=== PATIENT | female | born 1955 | race American Indian/Alaskan Native ===

== ENCOUNTER 2019-12-07 10:17 | Inpatient (IN) | payer MEDICARE ==
[2019-12-07] MEDS ORDERED: ONDANSETRON 4 MG/2 ML INJ ONE (17:20)
[2019-12-07] MEDS ORDERED: fentaNYL 100 MCG/2 ML INJ ONE (17:20)
[2019-12-07] MEDS ORDERED: HYDROmorphone 1 MG/1 ML INJ ONE (18:32)
[2019-12-07] MEDS ORDERED: ASPIRIN 325 MG TAB ONE (18:32)
--- NOTE | 2019-12-07 20:15 | History and Physical Report ---
History of Present Illness Chief complaint: My head was hurting and I could not talk History of present illness: 64 YO Female with HTN, DM, COPD, ELIAS, CHF, CVA, Pseudotumor Cerebrii S/P Serial Lumbar Puncture presents to ED for evaluation. Patient states that she was in her usual state of health at bedtime around 2200 hrs. Patient states that she awoke from sleep and felt as though she could not talk and if the right side of her face was weak. Patient also acknowledges a headache. EMS was notified and upon arrival the patient was found to be in distress and subsequently transported to [facility] for further care and evaluation. Patient seen and evaluated in the emergency department. Lab and imaging studies reviewed. Patient found to have symptoms consistent with pseudotumor cerebri syndrome. Patient placed in observation status and admitted to medical floor. Fluoroscopic guided lumbar puncture ordered at time of admission and is pending. Teleneurology consulted in ED. Patient denies fever, chills, chest pain, palpitations, syncope, trauma, falls, loss of bowel or bladder continence, saddle anesthesia, productive cough, recent ill contacts, or known exposure to COVID-19. No prior admission for review. No medication at the time of admission for reconciliation. Past History Past Medical History: COPD, heart failure, hypertension, stroke, other (See HPI) Past Surgical History: No surgical history, Other (Reviewed) Social history: . denies: smoking, alcohol abuse Family history: hypertension Medications and Allergies Allergies Allergy/AdvReac Type Severity Reaction Status Date / Time No Known Allergies Allergy Verified 12/07/19 20:46 Home Medications Medication Instructions Recorded Confirmed Last Taken Type Unobtainable 12/07/19 12/07/19 Unknown History Review of Systems Constitutional: no weight loss, no weight gain, no chills, no sweats Ears, nose, mouth and throat: no ear pain, no ear discharge, no tinnitis, no decreased hearing, no nasal congestion Breasts: no change in shape, no swelling Cardiovascular: no chest pain, no orthopnea, no rapid/irregular heart beat, no syncope, no lightheadedness Respiratory: no cough, no excessive sputum, no shortness of breath Gastrointestinal: no abdominal pain, no vomiting, no constipation, no hematemesis Genitourinary Female: no pelvic pain, no flank pain, no dysuria Rectal: no pain, no incontinence, no bleeding Musculoskeletal: no neck stiffness, no low back pain, no leg numbness/tingling Integumentary: no rash, no wounds, no jaundice Neurological: weakness, headaches, no tingling, no seizures, no syncope, no ataxia Psychiatric: no anxiety, no sleep disturbances, no hypersomnia Endocrine: no heat intolerance, no polyphagia, no polyuria, no flushing Hematologic/Lymphatic: no easy bleeding Exam - Constitutional Vitals: Temp Pulse Resp BP Pulse Ox 68 16 107/75 100 12/07/19 20:03 12/07/19 20:03 12/07/19 20:03 12/07/19 20:03 General appearance: Present: mild distress, obese - EENT Eyes: Present: PERRL ENT: hearing intact, clear oral mucosa - Neck Neck: Present: supple, normal ROM - Respiratory Respiratory effort: normal Respiratory: bilateral: CTA - Cardiovascular Heart Sounds: Present: S1 & S2. Absent: rub, click - Extremities Extremities: pulses symmetrical, No edema Peripheral Pulses: within normal limits - Abdominal General gastrointestinal: Present: soft, non-tender, non-distended, normal bowel sounds Female genitourinary: Present: normal - Integumentary Integumentary: Present: clear, warm, dry - Musculoskeletal Musculoskeletal: gait normal, strength equal bilaterally - Psychiatric Psychiatric: appropriate mood/affect, intact judgment & insight - Neurologic Neurologic: CNII-XII intact, moves all extremities Assessment and Plan - Patient Problems (1) Pseudotumor cerebri syndrome Current Visit: Yes Status: Acute Plan to address problem: Fluoroscopic guided lumbar puncture ordered and is pending at time of admission, supportive care, continue prehospital medication, CT scan of the brain, neuro check, seizure precautions. (2) Hypertension Current Visit: Yes Status: Acute Qualifiers: Hypertension type: essential hypertension Qualified Code(s): I10 - Essential (primary) hypertension Plan to address problem: Monitor blood pressure every shift, continue medical management. (3) Diabetes Current Visit: Yes Status: Acute Plan to address problem: Sliding-scale insulin therapy, Accu-Chek, hypoglycemia protocol, consistent carbohydrate diet. (4) Obesity hypoventilation syndrome Current Visit: Yes Status: Acute Plan to address problem: Supplemental oxygen, nebulized therapy, pulse oximetry, noninvasive positive pressure ventilation as clinically indicated, outpatient pulmonary follow-up for sleep study. (5) DVT prophylaxis Current Visit: Yes Status: Acute Plan to address problem: SCD to bilateral lower extremities while in bed, patient is ambulatory.
[2019-12-07] MEDS ORDERED: ONDANSETRON 4 MG/2 ML INJ IV PRN (20:17)
[2019-12-07] MEDS ORDERED: METOCLOPRAMIDE 10 MG TAB PO PRN (20:17)
[2019-12-07] MEDS ORDERED: PROMETHAZINE 25 MG RECT SUPP PR PRN (20:17)
--- NOTE | 2019-12-07 23:11 | Consultation ---
History of Present Illness Consult date: 12/07/19 Reason for Consult: severe OROURKE, left sided weakness History of present illness: late entry: patient evaluated this morning while EMR was down. Recommendations discussed with ED physician [facility] Tele[facility] Consult [facility] Date of Service: 12/07/2019 10:51:36 Impression: Rule Out Acute Ischemic Stroke, rule out complicated migraine and/or IIH Rule out SAH/aneurysm Hx IIH, check LP in ED with opening pressure, basic labs csf glucose protein cell count culture HSV Comments/Sign-Out: 64 yo F with hx TIAs, IIH who presents with left sided weakness, right eyelid ptosis, and variable sensory loss in setting of severe headache. This may be complicated migraine however stroke/SAH 2.2 aneurysm need to be ruled out. CT head shows no bleed per radiology. CTA head and neck recommended. ED MD to call back with result as system is down LP to confirm opening pressure and eval for IIH given history; aseptic meningitis less likely Mechanism of Stroke: Not Clear Metrics: Last Known Well: 12/06/2019 21:00:00 [employer] Notification Time: 12/07/2019 10:51:06 Arrival Time: 12/07/2019 10:30:00 Stamp Time: 12/07/2019 10:51:36 Time First Login Attempt: 12/07/2019 10:53:33 Video Start Time: 12/07/2019 10:55:32 Symptoms: severe OROURKE, left sided limb weakness. right eyelid ptosis NIHSS Start Assessment Time: 12/07/2019 10:57:54 Patient is not a candidate for Alteplase/Activase. Patient was not deemed candidate for Alteplase/Activase thrombolytics because of Last Well Known Above 4.5 Hours. Video End Time: 12/07/2019 11:11:13 CT head showed no acute hemorrhage or acute core infarct. Lower Likelihood of Large Vessel Occlusion but Following Stat Studies are Recommended CTA Head and Neck recommended ED Physician notified of diagnostic impression and management plan on 12/07/2019 11:11:27 Our recommendations are outlined below. Recommendations: Activate Stroke Protocol Admission/Order Set Stroke/Telemetry Floor Neuro Checks Bedside Swallow Eval DVT Prophylaxis IV Fluids, Normal Saline Head of Bed 30 Degrees Euglycemia and Avoid Hyperthermia (PRN Acetaminophen) Antiplatelet Therapy Recommended MRI brain with and without contrast if no contraindication Routine Consultation with Inhouse Neurology for Follow up Care Sign Out: Discussed with Emergency Department Provider History of Present Illness: Patient is a 64 year old Female. Patient was brought by EMS for symptoms of severe ORORUKE, left sided limb weakness. right eyelid ptosis 64 yo F hx TIAs on aspirin, IIH, DM2, HTN, systolic/diastolic HF who woke up and could not move her mouth, could not speak or move her neck side to side with severe headache. Head still hurting like it will explode. Exam with poor effort and variable. She has no facial asymmetry. She can move her neck to the left slightly, but limited to 45 degress laterally on the right. Her head and arms are shaking when moving them. She also has left arm and leg weakness (leg can't lift it off the bed, but when lifted slowly drifts to bed). Also she has right eyelid ptosis no dysconjugate gaze or pupil asymmetry, left facial sensory loss including the forehead, but right arm and leg decreased sensation Last seen normal was beyond 4.5 hours of presentation. There is no history of hemorrhagic complications or intracranial hemorrhage. There is no history of Recent Anticoagulants. There is no history of recent major surgery. There is no history of recent stroke. Past Medical History: Hypertension There is NO history of Stroke Anticoagulant use: No Antiplatelet use: asa 81 Examination: BP(121/72), Pulse(63), Blood Glucose(131) 1A: Level of Consciousness - Alert; keenly responsive + 0 1B: Ask Month and Age - Both Questions Right + 0 1C: Blink Eyes & Squeeze Hands - Performs Both Tasks + 0 2: Test Horizontal Extraocular Movements - Normal + 0 3: Test Visual Martin - No Visual Loss + 0 4: Test Facial Palsy (Use Grimace if Obtunded) - Normal symmetry + 0 5A: Test Left Arm Motor Drift - Drift, hits bed + 2 5B: Test Right Arm Motor Drift - No Drift for 10 Seconds + 0 6A: Test Left Leg Motor Drift - No Effort Against [place] + 3 6B: Test Right Leg Motor Drift - No Drift for 5 Seconds + 0 7: Test Limb Ataxia (FNF/Heel-Finn) - No Ataxia + 0 8: Test Sensation - Mild-Moderate Loss: Less Sharp/More Dull + 1 9: Test Language/Aphasia - Normal; No aphasia + 0 10: Test Dysarthria - Mild-Moderate Dysarthria: Slurring but can be understood + 1 11: Test Extinction/Inattention - No abnormality + 0 NIHSS Score: 7 Patient/Family was informed the Neurology Consult would happen via TeleHealth consult by way of interactive audio and video telecommunications and consented to receiving care in this manner. Due to the immediate potential for life-threatening deterioration due to underlying acute neurologic illness, I spent 36 minutes providing critical care. This time includes time for face to face visit via telemedicine, review of medical records, imaging studies and discussion of findings with providers, the patient and/or family. Dr Richard Chen [facility] Case [id number] Past History Past Medical History: COPD, heart failure, hypertension, stroke, other (See HPI) Past Surgical History: No surgical history, Other (Reviewed) Social history: . denies: smoking, alcohol abuse Family history: hypertension Medications and Allergies Allergies Allergy/AdvReac Type Severity Reaction Status Date / Time acetazolamide Allergy Anaphylaxis Verified 12/07/19 22:54 [From Diamox Sequels] beclomethasone Allergy Anaphylaxis Verified 12/07/19 22:55 [From Vanceril] Home Medications Medication Instructions Recorded Confirmed Last Taken Type Unobtainable 12/07/19 12/07/19 Unknown History Active Meds: Active Medications Acetaminophen (Tylenol) 650 mg PO Q4H PRN PRN Reason: Pain, Mild (1-3) Aspirin (Aspirin) 325 mg PO QDAY MARLYS Atorvastatin Calcium (Lipitor) 40 mg PO QHS [facility] Last Admin: 12/07/19 22:52 Dose: 40 mg Documented by: Bisacodyl (Dulcolax) 10 mg KS QDAY PRN PRN Reason: Constipation Magnesium Hydroxide (Milk Of Magnesia) 30 ml PO Q4H PRN PRN Reason: Constipation Metoclopramide HCl (Reglan) 10 mg PO Q6H PRN PRN Reason: Nausea And Vomiting Ondansetron HCl (Zofran) 4 mg IV Q8H PRN PRN Reason: Nausea And Vomiting Promethazine HCl (Phenergan) 25 mg KS Q6H PRN PRN Reason: Nausea And Vomiting Sodium Chloride (Sodium Chloride Flush Syringe 10 Ml) 10 ml IV PRN PRN PRN Reason: LINE FLUSH Physical Examination - Vital Signs Vital Signs: Vital Signs Pulse Resp BP Pulse Ox 68 16 107/75 100 12/07/19 20:03 12/07/19 20:03 12/07/19 20:03 12/07/19 20:03
[2019-12-08] MEDS ORDERED: MORPHINE 2 MG/1 ML INJ IV ONE (01:03)
[2019-12-08 05:56] LABS: Chol/HDL Ratio 2.63 %
[2019-12-08] MEDS: ASPIRIN 325 MG TAB PO SCH (09:31)
--- NOTE | 2019-12-08 10:11 | Progress Note ---
Assessment and Plan Assessment and plan: 64 YO Female with HTN, DM, COPD, ELIAS, CHF, CVA, Pseudotumor Cerebrii S/P Serial Lumbar Puncture presents to ED for evaluation. Patient states that she was in her usual state of health at bedtime around 2200 hrs. Patient states that she awoke from sleep and felt as though she could not talk and if the right side of her face was weak. Patient also acknowledges a headache. EMS was notified and upon arrival the patient was found to be in distress and subsequently transported to [facility] for further care and evaluation. Patient seen and evaluated in the emergency department. Lab and imaging studies reviewed. Patient found to have symptoms consistent with pseudotumor cerebri syndrome. Patient placed in observation status and admitted to medical floor. Fluoroscopic guided lumbar puncture ordered at time of admission and is pending. Teleneurology consulted in ED. --h/o Pseudotumor cerebri syndrome/serial lumbar punctures Current Visit: Yes Status: Acute Plan to address problem: Fluoroscopic guided lumbar puncture ordered and is pending at time of admission, CT scan of the brain, neuro check, seizure precautions. Neurology consult --Hypertension; moderate control Current Visit: Yes Status: Acute Plan to address problem: Continue current antihypertensives, as needed meds --Diabetes Current Visit: Yes Status: Acute Plan to address problem: Accu-Chek sliding scale coverage, ADA diet --Obesity hypoventilation syndrome Current Visit: Yes Status: Acute Plan to address problem: Supplemental oxygen, nebulized therapy, noninvasive positive pressure ventilation as clinically indicated, outpatient pulmonary follow-up for sleep study. -- DVT prophylaxis Current Visit: Yes Status: Acute Plan to address problem: SCD to bilateral lower extremities while in bed, patient is ambulatory. Closely monitor patient and adjust management as needed We will try to get records from her PMD if needed Plan of care reviewed with the patient and her nurse History Interval history: I have seen and examined the patient at the bedside this morning Patient's chart and medications reviewed Patient has history of pseudotumor cerebri patient undergoes serial LPs procedures Complains of some headache Alert awake oriented, vital signs reviewed stable Hospitalist Physical - Constitutional Vitals: Temp Pulse Resp BP Pulse Ox 97.3 F L 65 16 104/77 95 12/08/19 03:44 12/08/19 08:40 12/08/19 03:44 12/08/19 03:44 12/08/19 03:44 General appearance: Present: mild distress, obese (Morbidly obese) - EENT Eyes: Present: PERRL, EOM intact - Neck Neck: Present: supple, normal ROM - Respiratory Respiratory effort: normal Respiratory: bilateral: diminished, negative: rales, rhonchi, wheezing - Cardiovascular Rhythm: regular Heart Sounds: Present: S1 & S2 - Extremities Extremities: no ischemia, No edema - Abdominal General gastrointestinal: soft, non-tender, non-distended, normal bowel sounds - Integumentary Integumentary: Present: clear, warm - Psychiatric Psychiatric: appropriate mood/affect, cooperative - Neurologic Neurologic: moves all extremities Results - Labs CBC & Chem 7: 12/08/19 10:38 Labs: Laboratory Last Values POC Glucose 149 mg/dL (70-105) H 12/08/19 08:51 Triglycerides 127 mg/dL (2-149) 12/08/19 04:38 Cholesterol 100 mg/dL (50-199) 12/08/19 04:38 LDL Cholesterol Direct 43 mg/dL (50-130) L 12/08/19 04:38 HDL Cholesterol 38 mg/dL (40-59) L 12/08/19 04:38 Cholesterol/HDL Ratio 2.63 % 12/08/19 04:38 Flores/IV: Voiding Method Toilet IV Catheter Type [Right INT / Saline Lock Antecubital] Active Medications - Current Medications Current Medications: Generic Name Dose Route Start Last Admin Trade Name Freq PRN Reason Stop Dose Admin Acetaminophen 650 mg 12/07/19 20:17 Tylenol PO Q4H PRN Pain, Mild (1-3) Aspirin 325 mg 12/08/19 10:00 12/08/19 09:31 Aspirin PO 325 mg QDAY MARLYS Administration Atorvastatin Calcium 40 mg 12/07/19 22:00 12/07/19 22:52 Lipitor PO 40 mg QHS MARLYS Administration Bisacodyl 10 mg 12/07/19 20:17 Dulcolax OR QDAY PRN Constipation Magnesium Hydroxide 30 ml 12/07/19 20:17 Milk Of Magnesia PO Q4H PRN Constipation Metoclopramide HCl 10 mg 12/07/19 20:17 Reglan PO Q6H PRN Nausea And Vomiting Ondansetron HCl 4 mg 12/07/19 20:17 Zofran IV Q8H PRN Nausea And Vomiting Promethazine HCl 25 mg 12/07/19 20:17 Phenergan OR Q6H PRN Nausea And Vomiting Sodium Chloride 10 ml 12/07/19 20:17 Sodium Chloride Flush Syringe 10 Ml IV PRN PRN LINE FLUSH
[2019-12-08 11:36] LABS: Hematocrit 40.8 % (30.3-42.9); Hemoglobin 13.1 gm/dl (10.1-14.3); Mean Corpuscular HGB Conc 32 % (30-34); Mean Corpuscular Volume 84 fl (79-97); Platelet Count 160 K/mm3 (140-440); Red Blood Count 4.83 M/mm3 (3.65-5.03)
[2019-12-08 12:30] LABS: INR 1.07 (0.87-1.13)
--- NOTE | 2019-12-08 12:57 | Consultation ---
History of Present Illness Consult date: 12/08/19 Reason for Consult: Pseudotumor Cerebri History of present illness: 64yo female with htn, dm, cva, iih, copd, judie, chf, who presents with acute on set of a headache w/ aphasia w/ right sided facial weakness with noted (per teleneurology note) right eye ptosis and variable sensory symptoms. Past History Past Medical History: COPD, heart failure, hypertension, stroke, other (See HPI) Past Surgical History: No surgical history, Other (Reviewed) Social history: . denies: smoking, alcohol abuse Family history: hypertension Medications and Allergies Allergies Allergy/AdvReac Type Severity Reaction Status Date / Time acetazolamide Allergy Anaphylaxis Verified 12/07/19 22:54 [From Diamox Sequels] beclomethasone Allergy Anaphylaxis Verified 12/07/19 22:55 [From Vanceril] Home Medications Medication Instructions Recorded Confirmed Last Taken Type No Known Home Medications [No 12/08/19 12/08/19 Unknown History Reported Home Medications] Active Meds: Active Medications Acetaminophen (Tylenol) 650 mg PO Q4H PRN PRN Reason: Pain, Mild (1-3) Aspirin (Aspirin) 325 mg PO QDAY [facility] Last Admin: 12/08/19 09:31 Dose: 325 mg Documented by: Atorvastatin Calcium (Lipitor) 40 mg PO QHS [facility] Last Admin: 12/07/19 22:52 Dose: 40 mg Documented by: Bisacodyl (Dulcolax) 10 mg ND QDAY PRN PRN Reason: Constipation Magnesium Hydroxide (Milk Of Magnesia) 30 ml PO Q4H PRN PRN Reason: Constipation Metoclopramide HCl (Reglan) 10 mg PO Q6H PRN PRN Reason: Nausea And Vomiting Ondansetron HCl (Zofran) 4 mg IV Q8H PRN PRN Reason: Nausea And Vomiting Promethazine HCl (Phenergan) 25 mg ND Q6H PRN PRN Reason: Nausea And Vomiting Sodium Chloride (Sodium Chloride Flush Syringe 10 Ml) 10 ml IV PRN PRN PRN Reason: LINE FLUSH Review of Systems All systems: negative (except as per HPI;) Physical Examination - Vital Signs Vital Signs: Vital Signs Pulse Resp BP Pulse Ox 68 16 107/75 100 12/07/19 20:03 12/07/19 20:03 12/07/19 20:03 12/07/19 20:03 - Additional Exam Additional Exam: Patient is at LP during rounds. Results - Laboratory Findings CBC and BMP: 12/08/19 10:38 Abnormal Lab Findings: Abnormal Labs 12/08/19 12/08/19 12/08/19 04:38 08:51 10:38 MCH 27 L RDW 16.0 H POC Glucose 149 H LDL Cholesterol Direct 43 L HDL Cholesterol 38 L Assessment and Plan Patient is at LP during rounds.
[2019-12-08] MEDS ORDERED: LIDOCAINE (1%) 10 MG/1 ML VIAL 20 ML MDV ONE (13:33)
--- NOTE | 2019-12-08 13:45 | Cat Scan Report ---
NONENHANCED CT SCAN OF THE HEAD: INDICATION / CLINICAL INFORMATION: 64 years Female; MAIN. Stroke TECHNIQUE: Routine CT head without contrast. All CT scans at this location are performed using CT dos e reduction for ALARA by means of automated exposure control. COMPARISON: CT scan of the head from 12/08/2019 FINDINGS: BRAIN / INTRACRANIAL CONTENTS: No acute hemorrhage, mass effect, midline shift, hydrocephalus, or acu te, large territorial infarct. No chronic infarct or focal atrophy. Normal brain volume and ventricul ar/sulcal size for age. No significant white matter abnormality. Cortical involution CRANIOCERVICAL JUNCTION: No significant abnormality. ORBITS: No significant abnormality of visualized orbits. SINUSES / MASTOIDS: No significant abnormality of the visualized paranasal sinuses or mastoid air enio ls. ADDITIONAL FINDINGS: Empty sella IMPRESSION: No acute focal parenchymal lesion in the brain No territorial infarction Periventricular and deep hemispheric white matter are normal. Signer Name: Hina Herrera MD Signed: 12/08/2019 1:40 PM Workstation Name: [id number]
--- NOTE | 2019-12-08 14:09 | Procedure Note ---
Date of procedure: 12/08/19 Pre-op diagnosis: pseudotumor cerebri Post-op diagnosis: same Procedure: flouro guided lumbar puncture Findings: elevated CSF pressure [id number] Anesthesia: local Surgeon: ALEX GASTON Estimated blood loss: none Pathology: list (4 CSF tubes) Specimen disposition: to lab Condition: stable Disposition: floor
--- NOTE | 2019-12-08 15:07 | Cat Scan Report ---
CTA HEAD WITH CONTRAST HISTORY: Stroke COMPARISON: None. TECHNIQUE: Routine non-contrast CT Head, CTA of the head and post-contrast CT Head are performed. 3-D /MIP reformats postprocessed. All CT scans at this location are performed using CT dose reduction for ALARA by means of automated exposure control CONTRAST: 100 ml of Omnipaque 350 FINDINGS: CTA Head: Intracranial vertebral arteries: No significant abnormality. Basilar artery: No significant abnormality. Posterior cerebral arteries: No significant abnormality. Intracranial internal carotid arteries: No significant abnormality. Anterior cerebral arteries: No significant abnormality. Middle cerebral arteries: No significant abnormality. Dural venous sinuses:Not optimally opacified. No significant abnormality. Additional findings: None. IMPRESSION: 1. No significant abnormality. Signer Name: Hina Herrera MD Signed: 12/07/2019 5:26 PM Workstation Name: [id number]
--- NOTE | 2019-12-08 15:07 | Cat Scan Report ---
CTA NECK WITH CONTRAST HISTORY: Stroke COMPARISON: None. TECHNIQUE: Routine CTA of the neck was performed. 3-D/MIP reformats were postprocessed. Percentage s tenosis is determined by direct quantitative measurements of diseased internal carotid artery diamete r compared with normal distal internal carotid artery reference segments or by criteria similar to NA SCET where applicable.All CT scans at this location are performed using CT dose reduction for ALARA b y means of automated exposure control CONTRAST: 100 ml of Omnipaque 350 FINDINGS: Aortic arch: No significant abnormality. Cervical vertebral arteries: No significant abnormality. Common carotid arteries: No significant abnormality. Carotid bifurcations: Normal Cervical internal carotid arteries: No significant abnormality. Additional findings: None. IMPRESSION: 1. No significant abnormality. Signer Name: Hina Herrera MD Signed: 12/07/2019 5:23 PM Workstation Name: [id number]
[2019-12-08] MEDS ORDERED: oxyCODONE /ACETAMINOPHEN 5-325MG TAB PO PRN (15:43)
[2019-12-08] MEDS ORDERED: MORPHINE 2 MG/1 ML INJ IV PRN (16:00)
[2019-12-08 16:05] LABS: Glucose,CSF 99 mg/dL
--- NOTE | 2019-12-08 16:26 | Event Note ---
Date: 12/08/19 Patient with pseudotumor cerebri with history of serial lumbar punctures underwent fluoro guided lumbar puncture today per radiology Noted to have elevated CSF pressure 230mm H2O CSF was sent for analysis. Patient complains of some headache and back pain Will treat with IV Morphine alternating with oral Percocet Start IV fluids. Closely monitor
[2019-12-08 16:52] LABS: Appearance,CSF Cloudy; Red Blood Cell,CSF 10900 /mm3 (0-0); White Blood Cell,CSF 7 /mm3 (1-10)
[2019-12-08 17:14] LABS: Alanine Aminotransferase 14 units/L (7-56); BUN/Creatinine Ratio 30; Blood Urea Nitrogen 24 mg/dL (7-17); Calcium 8.7 mg/dL (8.4-10.2); Hemolysis Index 88
[2019-12-08 17:36] LABS: Basophils CSF 0 %; Total Cells Counted 100 /mm3
--- NOTE | 2019-12-08 17:42 | Cat Scan Report ---
NONENHANCED CT SCAN OF THE BRAIN: INDICATION: CODE STROKE CALL [phone]. TECHNIQUE: Routine CT head without contrast. Sagittal and coronal reformatted images were obtained. A ll CT scans at this location are performed using CT dose reduction for ALARA by means of automated ex posure control. COMPARISON: CT scan of the head and MRI scan of the brain from 11/02/2018 ([facility]). FINDINGS: BRAIN / INTRACRANIAL CONTENTS: Hemorrhage:No intracranial hemorrhage; no subarachnoid hemorrhage Stroke mimics: No subdural or epidural hematoma or space taking lesion Acute/subacute territorial infarction: Irwin-white matter interface: No blurring; normal Insular cortex: Normal Basal ganglia: Normal Wedge shaped parenchymal low density area: Not present Cortical sulci: Not effaced Lacunar infarctions: None Vasculopathy: Dense middle cerebral artery sign: Not present Internal carotid artery terminus: Normal Basilar artery:Normal Middle cerebral artery branches in the sylvian fissure (Dot sign): Normal Calcified embolus: Not present ASPECT score: 10 Chronic lesions: Chronic focal lesions; mild to moderate cortical involution; Craniocervical junction :No significant abnormality Orbits:No significant abnormality Paranasal sinuses/mastoids:No significant abnormality Additional findings: As seen in the previous imaging studies, bony defects seen along the inner table in the sphenoid wings bilaterally and left occipital from arachnoid pulsations. IMPRESSION: No hemorrhage or stroke mimics No acute subacute infarction This exam was performed as part of a code stroke protocol. The exam was completed at [facility] on 12/07/2019 10:35 AM. The exam was reviewed at 10:45 AM CDT and ER physician was not ified at 10:48 AM CDT. Signer Name: Hina Herrera MD Signed: 12/07/2019 11:48 AM Workstation Name: [id number]
[2019-12-08] MEDS: MORPHINE 2 MG/1 ML INJ IV PRN (18:32)
[2019-12-08] MEDS: ACETAMINOPHEN 325 MG TAB PO PRN (20:44)
[2019-12-09] MEDS: oxyCODONE /ACETAMINOPHEN 5-325MG TAB PO PRN ×3 (00:29→16:01)
[2019-12-09 05:03] LABS: Alanine Aminotransferase 13 units/L (7-56); Albumin 3.8 g/dL (3.9-5); Blood Urea Nitrogen 20 mg/dL (7-17); Calcium 8.9 mg/dL (8.4-10.2); Hemolysis Index 1
[2019-12-09 05:44] LABS: BUN/Creatinine Ratio 29
[2019-12-09] MEDS: MORPHINE 2 MG/1 ML INJ IV PRN (06:31)
--- NOTE | 2019-12-09 08:45 | Fluoroscopy Report ---
LUMBAR PUNCTURE INDICATION : Pseudotumor cerebri PROCEDURE: The risks (including but not limited to bleeding, infection, and spinal headache) and destiny efits were explained to the patient and informed consent was obtained. A time out procedure was perf ormed. The procedure site was prepped and draped in the usual sterile fashion and lidocaine was used for local anesthesia. Under fluoroscopic guidance, a 22-gauge spinal needle was advanced into the L3-4 interlaminar space. The opening pressure was 230 mm H2O which was calculated by adding the length of the needle (9 cm) to the height of the CSF column. 4 separate collection tubes were used to obtain 1-2 cc of CSF each. Sa mples were sent to the lab per the ordering physician specifications for further evaluation. During the collection phase of the CSF, the fluoroscopy tower brakes failed and the fluoroscopy tower slowly descended upon the patient in the gluteal region. The patient experienced minor discomfort. P ressure from the tower was removed immediately. The patient was reevaluated on the floor after 30 min utes and was doing well. This occurrence was discussed with the risk management and the ordering phys ician. IMPRESSION: Successful lumbar puncture as outlined above. Opening pressure was 230 mm H20. Fluoroscopic time: 1.5 minutes Number of fluoroscopic images: 1 Signer Name: José Miguel Ferrari Jr, MD Signed: 12/09/2019 8:41 AM Workstation Name: [id number]
[2019-12-09] MEDS: ASPIRIN 325 MG TAB PO SCH (09:22)
--- NOTE | 2019-12-09 17:13 | Progress Note ---
Assessment and Plan Assessment and plan: --h/o Pseudotumor cerebri syndrome/serial lumbar punctures Current Visit: Yes Status: Acute Plan to address problem: s/p Fluoroscopic guided lumbar puncture with high opening pressure CSF analysis pending, patient continues to have some headache and dizziness Supportive care, out of bed to chair as tolerated Neurology following --Headache/dizziness; Current Visit: Yes Status: Acute Plan to address problem: IV fluids, pain medications, ambulate as tolerated --Hypertension; moderate control Current Visit: Yes Status: Acute Plan to address problem: Continue current antihypertensives, as needed meds, --Diabetes Current Visit: Yes Status: Acute Plan to address problem: Accu-Chek sliding scale coverage, ADA diet --Morbid obesity BMI 41.5 Current Visit: Yes Status: Acute Plan to address problem: Supplemental oxygen, nebulized therapy, noninvasive positive pressure ventilation as clinically indicated, outpatient pulmonary follow-up for sleep study. -- DVT prophylaxis Current Visit: Yes Status: Acute Plan to address problem: SCD to bilateral lower extremities while in bed, patient is ambulatory. Closely monitor patient and adjust management as needed Follow clinically, follow CSF cultures and analysis Possible discharge tomorrow if stable Brief history; 64-year-old female patient with history of pseudotumor cerebri with serial lumb ar punctures was admitted with headache dizziness Evaluated by neurology, subsequently underwent lumbar puncture with very high opening pressures, CSF sent for analysis Today patient continues to have mild headache and dizziness, supportive care follow CSF cultures and analysis May DC tomorrow if stable History Interval history: I have seen and examined the patient at the bedside this morning. I have reviewed the chart current medications tests reports. Patient feels slightly better still complains of some headache and dizziness, In mild distress, Patient with pseudotumor cerebri underwent lumbar puncture, with high opening pressure CSF sent for analysis and culture, pending Patient's vital signs reviewed Hospitalist Physical - Constitutional Vitals: Temp Pulse Resp BP Pulse Ox 97.7 F 60 18 147/77 95 12/09/19 11:47 12/09/19 11:47 12/09/19 11:47 12/09/19 11:47 12/09/19 11:47 General appearance: Present: mild distress, well-nourished, obese (Morbidly obese) - EENT Eyes: Present: PERRL, EOM intact - Neck Neck: Present: supple, normal ROM - Respiratory Respiratory effort: normal Respiratory: bilateral: diminished, negative: rales, rhonchi, wheezing - Cardiovascular Rhythm: regular Heart Sounds: Present: S1 & S2 - Extremities Extremities: no ischemia, No edema - Abdominal General gastrointestinal: soft, non-tender, non-distended, normal bowel sounds - Integumentary Integumentary: Present: clear, warm - Psychiatric Psychiatric: appropriate mood/affect, cooperative - Neurologic Neurologic: moves all extremities, other (Intermittent headache and dizziness) Results - Labs CBC & Chem 7: 12/08/19 10:38 12/09/19 04:24 Labs: Laboratory Last Values WBC 10.2 K/mm3 (4.5-11.0) 12/08/19 10:38 RBC 4.83 M/mm3 (3.65-5.03) 12/08/19 10:38 Hgb 13.1 gm/dl (10.1-14.3) 12/08/19 10:38 Hct 40.8 % (30.3-42.9) 12/08/19 10:38 MCV 84 fl (79-97) 12/08/19 10:38 MCH 27 pg (28-32) L 12/08/19 10:38 MCHC 32 % (30-34) 12/08/19 10:38 RDW 16.0 % (13.2-15.2) H 12/08/19 10:38 Plt Count 160 K/mm3 (140-440) 12/08/19 10:38 PT 14.0 Sec. (12.2-14.9) 12/08/19 10:38 INR 1.07 (0.87-1.13) 12/08/19 10:38 Sodium 142 mmol/L (137-145) 12/09/19 04:24 Potassium 3.8 mmol/L (3.6-5.0) 12/09/19 04:24 Chloride 106.0 mmol/L (98-107) 12/09/19 04:24 Carbon Dioxide 22 mmol/L (22-30) 12/09/19 04:24 Anion Gap 18 mmol/L 12/09/19 04:24 BUN 20 mg/dL (7-17) H 12/09/19 04:24 Creatinine 0.7 mg/dL (0.6-1.2) 12/09/19 04:24 Estimated GFR > 60 ml/min 12/09/19 04:24 BUN/Creatinine Ratio 29 % 12/09/19 04:24 Glucose 145 mg/dL (65-100) H 12/09/19 04:24 POC Glucose 172 mg/dL (70-105) H 12/08/19 21:30 Calcium 8.9 mg/dL (8.4-10.2) 12/09/19 04:24 Total Bilirubin < 0.20 mg/dL (0.1-1.2) 12/09/19 04:24 AST 11 units/L (5-40) 12/09/19 04:24 ALT 13 units/L (7-56) 12/09/19 04:24 Alkaline Phosphatase 120 units/L (35-129) 12/09/19 04:24 Total Protein 6.4 g/dL (6.3-8.2) 12/09/19 04:24 Albumin 3.8 g/dL (3.9-5) L 12/09/19 04:24 Albumin/Globulin Ratio 1.5 % 12/09/19 04:24 Triglycerides 127 mg/dL (2-149) 12/08/19 04:38 Cholesterol 100 mg/dL (50-199) 12/08/19 04:38 LDL Cholesterol Direct 43 mg/dL (50-130) L 12/08/19 04:38 HDL Cholesterol 38 mg/dL (40-59) L 12/08/19 04:38 Cholesterol/HDL Ratio 2.63 % 12/08/19 04:38 CSF Appearance Cloudy 12/08/19 15:00 CSF Color Red 12/08/19 15:00 CSF WBC 7 /mm3 (1-10) 12/08/19 15:00 CSF RBC 91492 /mm3 (0-0) 12/08/19 15:00 CSF Seg Neutrophils 63.0 % (0-6) 12/08/19 15:00 CSF Lymphocytes % 33.0 % (40-80) 12/08/19 15:00 CSF Reactive Lymphs 0 % 12/08/19 15:00 CSF Monocytes % 2.0 % (15-45) 12/08/19 15:00 CSF Eosinophils % 2.0 % 12/08/19 15:00 CSF Basophils 0 % 12/08/19 15:00 CSF Pathologist Review C 12/08/19 15:00 CSF Glucose 99 mg/dL 12/08/19 15:00 CSF Total Protein 178 mg/dL 12/08/19 15:00 Microbiology: Microbiology 12/08/19 15:00 Cerebral Spinal Fluid CSF Culture - Preliminary Flores/IV: Voiding Method Toilet IV Catheter Type [Right INT / Saline Lock Antecubital] Active Medications - Current Medications Current Medications: Generic Name Dose Route Start Last Admin Trade Name Freq PRN Reason Stop Dose Admin Acetaminophen 650 mg 12/07/19 20:17 12/08/19 20:44 Tylenol PO 650 mg Q4H PRN Administration Pain, Mild (1-3) Aspirin 325 mg 12/08/19 10:00 12/09/19 09:22 Aspirin PO 325 mg QDAY MARLYS Administration Atorvastatin Calcium 40 mg 12/07/19 22:00 12/08/19 21:50 Lipitor PO 40 mg QHS MARLYS Administration Bisacodyl 10 mg 12/07/19 20:17 Dulcolax DC QDAY PRN Constipation Magnesium Hydroxide 30 ml 12/07/19 20:17 Milk Of Magnesia PO Q4H PRN Constipation Metoclopramide HCl 10 mg 12/07/19 20:17 Reglan PO Q6H PRN Nausea And Vomiting Ondansetron HCl 4 mg 12/07/19 20:17 Zofran IV Q8H PRN Nausea And Vomiting Oxycodone/Acetaminophen 1 tab 12/08/19 16:02 12/09/19 16:01 Percocet 5/325 PO 1 tab Q6H PRN Administration Pain, Moderate (4-6) Promethazine HCl 25 mg 12/07/19 20:17 Phenergan DC Q6H PRN Nausea And Vomiting Sodium Chloride 10 ml 12/07/19 20:17 12/09/19 06:37 Sodium Chloride Flush Syringe 10 Ml IV 10 ml PRN PRN Administration LINE FLUSH
--- NOTE | 2019-12-09 17:51 | Consultation ---
History of Present Illness Consult date: 12/09/19 Reason for Consult: pseudotumor cerebri and headache History of present illness: This is a comprehensive neurological consultation on Ms. Albania Lopez who is a very pleasant 64-year-old woman with documented diagnosis of pseudotumor cerebri since 1988 and has been going through several spinal tap. She was also seen by neurosurgeon while she was in [place] but the neurosurgeon declined to provide her help patient due to her comorbid conditions. Patient also had been seen by an emergency medicine nurse practitioner for possible procedure in her eye to prevent blindness. Patient had last LP in April 2018 and since then she has not had it. She just had one yesterday which did not help her to reduce the intensity of her headache. She also complained about droopiness on the right side of the eye as well as hypersensitivity on the right side of the face. In addition, she reported some weakness in the left arm and left leg. She also complained about double vision at times. She reported that she has been taking topiramate 200 mg twice a day and some other medication including Percocet which helped her headache at times. She is allergic to Diamox and therefore she does not want to take it. She also reported that she has been trying to reduce her weight however in the past she was given steroid and she said she put on so much weight and therefore she hates taking steroids. Her CT scan of the brain did not show any evidence of stroke or acute changes. The opening pressure on her lumbar puncture was 230 mm of water. She persisted with her headache about 57/10 pain grade scale. She denied any nausea or vomiting at this time. Past History Past Medical History: COPD, heart failure, hypertension, stroke, other (See HPI) Past Surgical History: No surgical history, Other (Reviewed) Social history: . denies: smoking, alcohol abuse Family history: hypertension Medications and Allergies Allergies Allergy/AdvReac Type Severity Reaction Status Date / Time acetazolamide Allergy Anaphylaxis Verified 12/07/19 22:54 [From Diamox Sequels] beclomethasone Allergy Anaphylaxis Verified 12/07/19 22:55 [From Vanceril] Home Medications Medication Instructions Recorded Confirmed Last Taken Type No Known Home Medications [No 12/08/19 12/08/19 Unknown History Reported Home Medications] Active Meds: Active Medications Acetaminophen (Tylenol) 650 mg PO Q4H PRN PRN Reason: Pain, Mild (1-3) Last Admin: 12/08/19 20:44 Dose: 650 mg Documented by: Aspirin (Aspirin) 325 mg PO QDAY [facility] Last Admin: 12/09/19 09:22 Dose: 325 mg Documented by: Atorvastatin Calcium (Lipitor) 40 mg PO QHS [facility] Last Admin: 12/08/19 21:50 Dose: 40 mg Documented by: Bisacodyl (Dulcolax) 10 mg NH QDAY PRN PRN Reason: Constipation Magnesium Hydroxide (Milk Of Magnesia) 30 ml PO Q4H PRN PRN Reason: Constipation Metoclopramide HCl (Reglan) 10 mg PO Q6H PRN PRN Reason: Nausea And Vomiting Ondansetron HCl (Zofran) 4 mg IV Q8H PRN PRN Reason: Nausea And Vomiting Oxycodone/Acetaminophen (Percocet 5/325) 1 tab PO Q6H PRN PRN Reason: Pain, Moderate (4-6) Last Admin: 12/09/19 16:01 Dose: 1 tab Documented by: Promethazine HCl (Phenergan) 25 mg NH Q6H PRN PRN Reason: Nausea And Vomiting Sodium Chloride (Sodium Chloride Flush Syringe 10 Ml) 10 ml IV PRN PRN PRN Reason: LINE FLUSH Last Admin: 12/09/19 06:37 Dose: 10 ml Documented by: Review of Systems All systems: negative (as reported in her HPI) Physical Examination - Vital Signs Vital Signs: Vital Signs Pulse Resp BP Pulse Ox 68 16 107/75 100 12/07/19 20:03 12/07/19 20:03 12/07/19 20:03 12/07/19 20:03 - Physical Exam Narrative exam: Comprehensive Neurological Examinations: Mental status: alert. Fund of knowledge-normal. Affect-appropriate. Recent memory-normal. Remote memory-normal. Attention span-normal. Cognitive function-normal. Thought content/perception-normal Speech-normal Cranial nerves: right eye ptosis II Optic: Visual aubhtt-gtrvfrdhx-gmuiye. Visual field-normal. III Oculomotor: Bilateral-normal IV Trochlear: Bilateral-normal V Trigeminal: increased sensitivity on the right side of the face Abducens: Bilateral-normal VII Facial: no asymmetry VIII Acoustic: utnxikxvo-pxzwvow-qegjrm( tested by finger rub) IX Glossopharyngeal/ X Thyhq-jaxeq-jkhpgh XI Accessory-normal shoulder shrug XII Uexmndphesz-lsirrppjc-kdliep Eye movements: Ybcy-gtxmvxbna-eubxjp Nystagmus: Bilateral-none Motor: Bulk and contour: Normal Tone: Normal Strength: Head and neck-normal Upper extremities: Right-5/5 Left-4/5 Lower extremities: Right-5/5 Left-4/5 DTRs: Deferred Plantar reflexes( Babinski)-bilateral-plantar flexion Sensory: Light touch/eofnfbum-zmvgqv-vrjwhzqi Pain/iygxrswiiqf-hbkegt-guppjfum Position/hstowbawo-azksrl-dzfsrpqi Coordination: No impairment Pinh-uj-Rxwp, no impairment of zvbdda-pp-rxce or no impairment of rapid alternating movements. Gait/Station: not tested Results - Laboratory Findings CBC and BMP: 12/08/19 10:38 12/09/19 04:24 Abnormal Lab Findings: Abnormal Labs 12/08/19 12/08/19 12/08/19 04:38 08:51 10:38 MCH 27 L RDW 16.0 H Carbon Dioxide BUN Glucose POC Glucose 149 H Total Protein Albumin LDL Cholesterol Direct 43 L HDL Cholesterol 38 L 12/08/19 12/08/19 12/09/19 16:35 21:30 04:24 MCH RDW Carbon Dioxide 21 L BUN 24 H 20 H Glucose 155 H 145 H POC Glucose 172 H Total Protein 6.1 L Albumin 3.8 L LDL Cholesterol Direct HDL Cholesterol Assessment and Plan - Patient Problems (1) Stroke determined by clinical assessment Current Visit: Yes Status: Acute Plan to address problem: Plan: 1) Patient needs MRI of brain with and without gadolinium to prove or disprove that her left-sided weakness is asked actually due to right brain new versus old stroke 2) continue baby aspirin and once a day daily along with statin 3) PT/OT/speech evaluation and treatment 4) DVT prophylaxis (2) Pseudotumor cerebri syndrome Current Visit: Yes Status: Acute Plan to address problem: Plan: 1) Consider neurosurgery consultation for your evaluation for LP shunt. 2) Prescribed frequent lumbar puncture every 4 months as patient reported that it did help in the past 3) Consider repeat lumbar puncture in the next couple of days if her headache does not go away.( her persistent headache could be a combination of due to pseudotumor cerebri as well as post-LP headache.) 4) Consider restarting her topiramate 200 mg twice a day as prescribed 5) May need outpatient ophthalmology evaluation for reconsideration of optic nerve sheath fenestration to prevent blindness from persistent pseudotumor c erebri condition I discussed at length with the patient regarding her condition and possible treatment options. I have answered multiple questions posed by the patient to her best satisfactions. Patient agreed with the plan. Thank you very much for allowing us in the care of your patient. Please call us if you have any questions. Andrew Aldridge MD Tele-neurologist [phone]
[2019-12-09] MEDS: ACETAMINOPHEN 325 MG TAB PO PRN (20:20)
[2019-12-09] MEDS ORDERED: MORPHINE 2 MG/1 ML INJ IV ONE (22:00)
[2019-12-10] MEDS: oxyCODONE /ACETAMINOPHEN 5-325MG TAB PO PRN ×3 (05:49→19:49)
--- NOTE | 2019-12-10 09:10 | Progress Note ---
Assessment and Plan Assessment and plan: --h/o Pseudotumor cerebri syndrome/serial lumbar punctures Current Visit: Yes Status: Acute Plan to address problem: s/p Fluoroscopic guided lumbar puncture with high opening pressure CSF analysis pending, patient continues to have some headache and dizziness Supportive care, out of bed to chair as tolerated Neurology following --Headache/dizziness; Current Visit: Yes Status: Acute Plan to address problem: IV fluids, pain medications, ambulate as tolerated --Hypertension; moderate control Current Visit: Yes Status: Acute Plan to address problem: Continue current antihypertensives, as needed meds, --Diabetes Current Visit: Yes Status: Acute Plan to address problem: Accu-Chek sliding scale coverage, ADA diet --Morbid obesity BMI 41.5 Current Visit: Yes Status: Acute Plan to address problem: Supplemental oxygen, nebulized therapy, noninvasive positive pressure ventilation as clinically indicated, outpatient pulmonary follow-up for sleep study. -- DVT prophylaxis Current Visit: Yes Status: Acute Plan to address problem: SCD to bilateral lower extremities while in bed, patient is ambulatory. 12/10/2019. Follow-up MRI brain to rule out CVA for left-sided weakness. Continue aspirin and statin. PT/OT/ST. Physical therapy recommends discharge home with no needs. Neurology recommends neurosurgery evaluation as an ou tpatient for LP shunt for pseudotumor cerebri syndrome. Continue frequent lumbar puncture every 4 months. Also patient may need outpatient ophthalmology evaluation for reconsideration of optic nerve sheath fenestration to prevent blindness from persistent pseudotumor cerebri condition. Consider discharge if MRI negative. History Interval history: No new issues overnight. Hospitalist Physical - Constitutional Vitals: Temp Pulse Resp BP Pulse Ox 97.3 F L 58 L 18 153/54 96 12/10/19 04:04 12/10/19 04:04 12/10/19 08:16 12/10/19 04:04 12/10/19 04:04 General appearance: Present: mild distress, well-nourished, obese (Morbidly obese) - EENT Eyes: Present: PERRL, EOM intact ENT: hearing intact, clear oral mucosa, dentition normal - Neck Neck: Present: supple, normal ROM - Respiratory Respiratory effort: normal Respiratory: bilateral: CTA - Cardiovascular Rhythm: regular Heart Sounds: Present: S1 & S2. Absent: gallop, rub - Extremities Extremities: no ischemia, No edema, Full ROM - Abdominal General gastrointestinal: soft, non-tender, non-distended, normal bowel sounds - Integumentary Integumentary: Present: clear, warm, dry - Neurologic Neurologic: CNII-XII intact, moves all extremities Results - Labs CBC & Chem 7: 12/08/19 10:38 12/09/19 04:24 Labs: Laboratory Last Values WBC 10.2 K/mm3 (4.5-11.0) 12/08/19 10:38 RBC 4.83 M/mm3 (3.65-5.03) 12/08/19 10:38 Hgb 13.1 gm/dl (10.1-14.3) 12/08/19 10:38 Hct 40.8 % (30.3-42.9) 12/08/19 10:38 MCV 84 fl (79-97) 12/08/19 10:38 MCH 27 pg (28-32) L 12/08/19 10:38 MCHC 32 % (30-34) 12/08/19 10:38 RDW 16.0 % (13.2-15.2) H 12/08/19 10:38 Plt Count 160 K/mm3 (140-440) 12/08/19 10:38 PT 14.0 Sec. (12.2-14.9) 12/08/19 10:38 INR 1.07 (0.87-1.13) 12/08/19 10:38 Sodium 142 mmol/L (137-145) 12/09/19 04:24 Potassium 3.8 mmol/L (3.6-5.0) 12/09/19 04:24 Chloride 106.0 mmol/L (98-107) 12/09/19 04:24 Carbon Dioxide 22 mmol/L (22-30) 12/09/19 04:24 Anion Gap 18 mmol/L 12/09/19 04:24 BUN 20 mg/dL (7-17) H 12/09/19 04:24 Creatinine 0.7 mg/dL (0.6-1.2) 12/09/19 04:24 Estimated GFR > 60 ml/min 12/09/19 04:24 BUN/Creatinine Ratio 29 % 12/09/19 04:24 Glucose 145 mg/dL (65-100) H 12/09/19 04:24 POC Glucose 172 mg/dL (70-105) H 12/08/19 21:30 Calcium 8.9 mg/dL (8.4-10.2) 12/09/19 04:24 Total Bilirubin < 0.20 mg/dL (0.1-1.2) 12/09/19 04:24 AST 11 units/L (5-40) 12/09/19 04:24 ALT 13 units/L (7-56) 12/09/19 04:24 Alkaline Phosphatase 120 units/L (35-129) 12/09/19 04:24 Total Protein 6.4 g/dL (6.3-8.2) 12/09/19 04:24 Albumin 3.8 g/dL (3.9-5) L 12/09/19 04:24 Albumin/Globulin Ratio 1.5 % 12/09/19 04:24 Triglycerides 127 mg/dL (2-149) 12/08/19 04:38 Cholesterol 100 mg/dL (50-199) 12/08/19 04:38 LDL Cholesterol Direct 43 mg/dL (50-130) L 12/08/19 04:38 HDL Cholesterol 38 mg/dL (40-59) L 12/08/19 04:38 Cholesterol/HDL Ratio 2.63 % 12/08/19 04:38 CSF Appearance Cloudy 12/08/19 15:00 CSF Color Red 12/08/19 15:00 CSF WBC 7 /mm3 (1-10) 12/08/19 15:00 CSF RBC 45345 /mm3 (0-0) 12/08/19 15:00 CSF Seg Neutrophils 63.0 % (0-6) 12/08/19 15:00 CSF Lymphocytes % 33.0 % (40-80) 12/08/19 15:00 CSF Reactive Lymphs 0 % 12/08/19 15:00 CSF Monocytes % 2.0 % (15-45) 12/08/19 15:00 CSF Eosinophils % 2.0 % 12/08/19 15:00 CSF Basophils 0 % 12/08/19 15:00 CSF Pathologist Review C 12/08/19 15:00 CSF Glucose 99 mg/dL 12/08/19 15:00 CSF Total Protein 178 mg/dL 12/08/19 15:00 Flores/IV: Voiding Method Toilet IV Catheter Type [Right INT / Saline Lock Antecubital] Active Medications - Current Medications Current Medications: Generic Name Dose Route Start Last Admin Trade Name Freq PRN Reason Stop Dose Admin Acetaminophen 650 mg 12/07/19 20:17 12/09/19 20:20 Tylenol PO 650 mg Q4H PRN Administration Pain, Mild (1-3) Aspirin 325 mg 12/08/19 10:00 12/09/19 09:22 Aspirin PO 325 mg QDAY MARLYS Administration Atorvastatin Calcium 40 mg 12/07/19 22:00 12/09/19 22:05 Lipitor PO 40 mg QHS MARLYS Administration Bisacodyl 10 mg 12/07/19 20:17 Dulcolax [place] QDAY PRN Constipation Magnesium Hydroxide 30 ml 12/07/19 20:17 Milk Of Magnesia PO Q4H PRN Constipation Metoclopramide HCl 10 mg 12/07/19 20:17 Reglan PO Q6H PRN Nausea And Vomiting Ondansetron HCl 4 mg 12/07/19 20:17 Zofran IV Q8H PRN Nausea And Vomiting Oxycodone/Acetaminophen 1 tab 12/08/19 16:02 12/10/19 05:49 Percocet 5/325 PO 1 tab Q6H PRN Administration Pain, Moderate (4-6) Promethazine HCl 25 mg 12/07/19 20:17 Phenergan [place] Q6H PRN Nausea And Vomiting Sodium Chloride 10 ml 12/07/19 20:17 12/09/19 06:37 Sodium Chloride Flush Syringe 10 Ml IV 10 ml PRN PRN Administration LINE FLUSH
[2019-12-10] MEDS: ASPIRIN 325 MG TAB PO SCH (12:02)
--- NOTE | 2019-12-10 12:20 | Magnetic Resonance Report ---
MR brain wo/w con INDICATION / CLINICAL INFORMATION: 64 years Female; MAIN. TECHNIQUE: Multiplanar, multisequence MR images of the brain were obtained. Motion artifact COMPARISON: CT-12/08/2019 FINDINGS: BRAIN / INTRACRANIAL CONTENTS: No acute hemorrhage, mass effect, midline shift, hydrocephalus, or acu te, large territorial infarct. Minimal cerebral atrophy noted. No significant white matter abnormalit y. I see no signs of abnormal enhancement following contrast administration. CRANIOCERVICAL JUNCTION: No significant abnormality. VASCULAR FLOW-VOIDS: No significant abnormality. ORBITS: No significant abnormality of visualized orbits. SINUSES / MASTOIDS: Mild to moderate mucosal thickening seen in the ethmoids. Nasal septal perforatio n noted-please clinically correlate. ADDITIONAL FINDINGS: None. IMPRESSION: 1. No focal mass, hemorrhage, hydrocephalus, or acute ischemia. Signer Name: Anish Krishnamurthy MD, III Signed: 12/10/2019 12:16 PM Workstation Name: [id number]
[2019-12-10] MEDS ORDERED: MORPHINE 2 MG/1 ML INJ IV SCH ×2 (12:30→15:00)
[2019-12-10] MEDS ORDERED: MORPHINE 2 MG/1 ML INJ IV ONE (23:30)
[2019-12-11] MEDS: oxyCODONE /ACETAMINOPHEN 5-325MG TAB PO PRN ×2 (05:19→15:57)
[2019-12-11] MEDS: ASPIRIN 325 MG TAB PO SCH (09:20)
--- NOTE | 2019-12-11 10:24 | Progress Note ---
Assessment and Plan Assessment and plan: --h/o Pseudotumor cerebri syndrome/serial lumbar punctures Current Visit: Yes Status: Acute Plan to address problem: s/p Fluoroscopic guided lumbar puncture with high opening pressure CSF analysis pending, patient continues to have some headache and dizziness Supportive care, out of bed to chair as tolerated Neurology following --Headache/dizziness; Current Visit: Yes Status: Acute Plan to address problem: IV fluids, pain medications, ambulate as tolerated --Hypertension; moderate control Current Visit: Yes Status: Acute Plan to address problem: Continue current antihypertensives, as needed meds, --Diabetes Current Visit: Yes Status: Acute Plan to address problem: Accu-Chek sliding scale coverage, ADA diet --Morbid obesity BMI 41.5 Current Visit: Yes Status: Acute Plan to address problem: Supplemental oxygen, nebulized therapy, noninvasive positive pressure ventilation as clinically indicated, outpatient pulmonary follow-up for sleep study. -- DVT prophylaxis Current Visit: Yes Status: Acute Plan to address problem: SCD to bilateral lower extremities while in bed, patient is ambulatory. 12/10/2019. Follow-up MRI brain to rule out CVA for left-sided weakness. Continue aspirin and statin. PT/OT/ST. Physical therapy recommends discharge home with no needs. Neurology recommends neurosurgery evaluation as an ou tpatient for LP shunt for pseudotumor cerebri syndrome. Continue frequent lumbar puncture every 4 months. Also patient may need outpatient ophthalmology evaluation for reconsideration of optic nerve sheath fenestration to prevent blindness from persistent pseudotumor cerebri condition. Consider discharge if MRI negative. 12/11/2019. MRI revealed no focal mass, hemorrhage, hydrocephalus or acute ischemia. Neurosurgery consultation for LP shunt for pseudotumor cerebri syndrome. Also patient may need outpatient ophthalmology evaluation for reconsideration of optic nerve sheath fenestration to prevent blindness from persistent pseudotumor cerebri condition. Patient still complains of headache and may need repeat LP per neurology recommendations. History Interval history: No new issues overnight. Hospitalist Physical - Constitutional Vitals: Temp Pulse Resp BP Pulse Ox 97.9 F 64 18 121/68 97 12/11/19 07:20 12/11/19 07:20 12/11/19 07:20 12/11/19 07:20 12/11/19 07:20 General appearance: Present: mild distress, well-nourished, obese (Morbidly obese) - EENT Eyes: Present: PERRL, EOM intact ENT: hearing intact, clear oral mucosa, dentition normal - Neck Neck: Present: supple, normal ROM - Respiratory Respiratory effort: normal Respiratory: bilateral: CTA - Cardiovascular Rhythm: regular Heart Sounds: Present: S1 & S2. Absent: gallop, rub - Extremities Extremities: no ischemia, No edema, Full ROM - Abdominal General gastrointestinal: soft, non-tender, non-distended, normal bowel sounds - Integumentary Integumentary: Present: clear, warm, dry - Neurologic Neurologic: CNII-XII intact, moves all extremities Results - Labs CBC & Chem 7: 12/08/19 10:38 12/09/19 04:24 Labs: Laboratory Last Values WBC 10.2 K/mm3 (4.5-11.0) 12/08/19 10:38 RBC 4.83 M/mm3 (3.65-5.03) 12/08/19 10:38 Hgb 13.1 gm/dl (10.1-14.3) 12/08/19 10:38 Hct 40.8 % (30.3-42.9) 12/08/19 10:38 MCV 84 fl (79-97) 12/08/19 10:38 MCH 27 pg (28-32) L 12/08/19 10:38 MCHC 32 % (30-34) 12/08/19 10:38 RDW 16.0 % (13.2-15.2) H 12/08/19 10:38 Plt Count 160 K/mm3 (140-440) 12/08/19 10:38 PT 14.0 Sec. (12.2-14.9) 12/08/19 10:38 INR 1.07 (0.87-1.13) 12/08/19 10:38 Sodium 142 mmol/L (137-145) 12/09/19 04:24 Potassium 3.8 mmol/L (3.6-5.0) 12/09/19 04:24 Chloride 106.0 mmol/L (98-107) 12/09/19 04:24 Carbon Dioxide 22 mmol/L (22-30) 12/09/19 04:24 Anion Gap 18 mmol/L 12/09/19 04:24 BUN 20 mg/dL (7-17) H 12/09/19 04:24 Creatinine 0.7 mg/dL (0.6-1.2) 12/09/19 04:24 Estimated GFR > 60 ml/min 12/09/19 04:24 BUN/Creatinine Ratio 29 % 12/09/19 04:24 Glucose 145 mg/dL (65-100) H 12/09/19 04:24 POC Glucose 172 mg/dL (70-105) H 12/08/19 21:30 Calcium 8.9 mg/dL (8.4-10.2) 12/09/19 04:24 Total Bilirubin < 0.20 mg/dL (0.1-1.2) 12/09/19 04:24 AST 11 units/L (5-40) 12/09/19 04:24 ALT 13 units/L (7-56) 12/09/19 04:24 Alkaline Phosphatase 120 units/L (35-129) 12/09/19 04:24 Total Protein 6.4 g/dL (6.3-8.2) 12/09/19 04:24 Albumin 3.8 g/dL (3.9-5) L 12/09/19 04:24 Albumin/Globulin Ratio 1.5 % 12/09/19 04:24 Triglycerides 127 mg/dL (2-149) 12/08/19 04:38 Cholesterol 100 mg/dL (50-199) 12/08/19 04:38 LDL Cholesterol Direct 43 mg/dL (50-130) L 12/08/19 04:38 HDL Cholesterol 38 mg/dL (40-59) L 12/08/19 04:38 Cholesterol/HDL Ratio 2.63 % 12/08/19 04:38 CSF Appearance Cloudy 12/08/19 15:00 CSF Color Red 12/08/19 15:00 CSF WBC 7 /mm3 (1-10) 12/08/19 15:00 CSF RBC 82323 /mm3 (0-0) 12/08/19 15:00 CSF Seg Neutrophils 63.0 % (0-6) 12/08/19 15:00 CSF Lymphocytes % 33.0 % (40-80) 12/08/19 15:00 CSF Reactive Lymphs 0 % 12/08/19 15:00 CSF Monocytes % 2.0 % (15-45) 12/08/19 15:00 CSF Eosinophils % 2.0 % 12/08/19 15:00 CSF Basophils 0 % 12/08/19 15:00 CSF Pathologist Review C 12/08/19 15:00 CSF Glucose 99 mg/dL 12/08/19 15:00 CSF Total Protein 178 mg/dL 12/08/19 15:00 Microbiology: Microbiology 12/08/19 15:00 Cerebral Spinal Fluid CSF Culture - Preliminary Flores/IV: Voiding Method Toilet IV Catheter Type [Right INT / Saline Lock Antecubital] Active Medications - Current Medications Current Medications: Generic Name Dose Route Start Last Admin Trade Name Freq PRN Reason Stop Dose Admin Acetaminophen 650 mg 12/07/19 20:17 12/09/19 20:20 Tylenol PO 650 mg Q4H PRN Administration Pain, Mild (1-3) Aspirin 325 mg 12/08/19 10:00 12/11/19 09:20 Aspirin PO 325 mg QDAY MARLYS Administration Atorvastatin Calcium 40 mg 12/07/19 22:00 12/10/19 21:47 Lipitor PO 40 mg QHS MARLYS Administration Bisacodyl 10 mg 12/07/19 20:17 Dulcolax AL QDAY PRN Constipation Magnesium Hydroxide 30 ml 12/07/19 20:17 Milk Of Magnesia PO Q4H PRN Constipation Metoclopramide HCl 10 mg 12/07/19 20:17 Reglan PO Q6H PRN Nausea And Vomiting Ondansetron HCl 4 mg 12/07/19 20:17 Zofran IV Q8H PRN Nausea And Vomiting Oxycodone/Acetaminophen 1 tab 12/08/19 16:02 12/11/19 05:19 Percocet 5/325 PO 1 tab Q6H PRN Administration Pain, Moderate (4-6) Promethazine HCl 25 mg 12/07/19 20:17 Phenergan AL Q6H PRN Nausea And Vomiting Sodium Chloride 10 ml 12/07/19 20:17 12/11/19 09:20 Sodium Chloride Flush Syringe 10 Ml IV 10 ml PRN PRN Administration LINE FLUSH
[2019-12-11] MEDS ORDERED: MORPHINE 2 MG/1 ML INJ IV ONE (20:54)
--- NOTE | 2019-12-11 21:44 | Consultation ---
History of Present Illness Consult date: 12/11/19 Requesting physician: KEYANNA FORD Reason for Consult: Psuedotumor Cerebri Chief complaint: Headache History of present illness: Hawa Lopez is a 64 y/o Female w/ history of Tracheomalacia, CHF, Pseudotumor Cerebri. She was diagnosed with Pseudotumor cerebri in 1988. Since that time, she has undergone serial Lumbar punctures approximately every 4 months until recently. Her last therapeutic lumbar puncture was performed in April 2018. She presented to [facility] a few days ago with headache slurred speech, worsening vision in her R eye, and left sided weakness. CT and MRI stud ies of her brain were negative for acute ischemia . A diagnostic lumbar puncture was performed, which revealed an opening pressure of 23 cm H20. Approximately 10 cc of csf were withdrawn, but this drainage did not improve her headaches. She is allergic to Diamox but she does take Lasix for CHF. She has been evaluated by several neurosurgeons for shunt placement, but surgical intervention was not pursued due to unacceptable mary-operative risk in the context of multiple medical maladies. Past History Past Medical History: COPD, heart failure, hypertension, stroke, other (See HPI) Past Surgical History: No surgical history, Other (Reviewed) Social history: . denies: smoking, alcohol abuse Family history: hypertension Medications and Allergies Allergies Allergy/AdvReac Type Severity Reaction Status Date / Time acetazolamide Allergy Anaphylaxis Verified 12/07/19 22:54 [From Diamox Sequels] beclomethasone Allergy Anaphylaxis Verified 12/07/19 22:55 [From Vanceril] Home Medications Medication Instructions Recorded Confirmed Last Taken Type No Known Home Medications [No 12/08/19 Unknown History Reported Home Medications] Active Meds: Active Medications Acetaminophen (Tylenol) 650 mg PO Q4H PRN PRN Reason: Pain, Mild (1-3) Last Admin: 12/09/19 20:20 Dose: 650 mg Documented by: Aspirin (Aspirin) 325 mg PO QDAY [facility] Last Admin: 12/11/19 09:20 Dose: 325 mg Documented by: Atorvastatin Calcium (Lipitor) 40 mg PO QHS [facility] Last Admin: 12/11/19 21:09 Dose: 40 mg Documented by: Bisacodyl (Dulcolax) 10 mg AR QDAY PRN PRN Reason: Constipation Magnesium Hydroxide (Milk Of Magnesia) 30 ml PO Q4H PRN PRN Reason: Constipation Metoclopramide HCl (Reglan) 10 mg PO Q6H PRN PRN Reason: Nausea And Vomiting Ondansetron HCl (Zofran) 4 mg IV Q8H PRN PRN Reason: Nausea And Vomiting Oxycodone/Acetaminophen (Percocet 5/325) 1 tab PO Q6H PRN PRN Reason: Pain, Moderate (4-6) Last Admin: 12/11/19 15:57 Dose: 1 tab Documented by: Promethazine HCl (Phenergan) 25 mg AR Q6H PRN PRN Reason: Nausea And Vomiting Sodium Chloride (Sodium Chloride Flush Syringe 10 Ml) 10 ml IV PRN PRN PRN Reason: LINE FLUSH Last Admin: 12/11/19 09:20 Dose: 10 ml Documented by: Review of Systems All systems: negative Eyes: right: decreased vision Physical Examination - Vital Signs Vital Signs: Vital Signs Pulse Resp BP Pulse Ox 68 16 107/75 100 12/07/19 20:03 12/07/19 20:03 12/07/19 20:03 12/07/19 20:03 Results - Laboratory Findings CBC and BMP: 12/08/19 10:38 12/09/19 04:24 Abnormal Lab Findings: Abnormal Labs 12/08/19 12/08/19 12/08/19 04:38 08:51 10:38 MCH 27 L RDW 16.0 H Carbon Dioxide BUN Glucose POC Glucose 149 H Total Protein Albumin LDL Cholesterol Direct 43 L HDL Cholesterol 38 L 12/08/19 12/08/19 12/09/19 16:35 21:30 04:24 MCH RDW Carbon Dioxide 21 L BUN 24 H 20 H Glucose 155 H 145 H POC Glucose 172 H Total Protein 6.1 L Albumin 3.8 L LDL Cholesterol Direct HDL Cholesterol 12/11/19 12/11/19 16:18 21:25 MCH RDW Carbon Dioxide BUN Glucose POC Glucose 178 H 245 H Total Protein Albumin LDL Cholesterol Direct HDL Cholesterol Assessment and Plan 64 y/o Female w/ Pseudotumor Cerebri, opening pressure 23 cm H20 -recommend ophthalmology consultation for fundoscopic examination, and consideration for optic sheath fenestration -patient not a candidate for csf diversion due to bordeline opening pressure on LP, predominance of visual symptoms rather than headache, and her high surgical risk status -recommend continued serial Lumbar punctures as scheduled -please notify if questions
[2019-12-11] MEDS: INSULIN LISPRO 100 UNIT/ML VIAL 3 mL SUB-Q SCH (23:20)
[2019-12-12] MEDS: INSULIN LISPRO 100 UNIT/ML VIAL 3 mL SUB-Q SCH ×4 (07:30→22:30)
--- NOTE | 2019-12-12 08:49 | Progress Note ---
Assessment and Plan Assessment and plan: --h/o Pseudotumor cerebri syndrome/serial lumbar punctures Current Visit: Yes Status: Acute Plan to address problem: s/p Fluoroscopic guided lumbar puncture with high opening pressure CSF analysis pending, patient continues to have some headache and dizziness Supportive care, out of bed to chair as tolerated Neurology following --Headache/dizziness; Current Visit: Yes Status: Acute Plan to address problem: IV fluids, pain medications, ambulate as tolerated --Hypertension; moderate control Current Visit: Yes Status: Acute Plan to address problem: Continue current antihypertensives, as needed meds, --Diabetes Current Visit: Yes Status: Acute Plan to address problem: Accu-Chek sliding scale coverage, ADA diet --Morbid obesity BMI 41.5 Current Visit: Yes Status: Acute Plan to address problem: Supplemental oxygen, nebulized therapy, noninvasive positive pressure ventilation as clinically indicated, outpatient pulmonary follow-up for sleep study. -- DVT prophylaxis Current Visit: Yes Status: Acute Plan to address problem: SCD to bilateral lower extremities while in bed, patient is ambulatory. 12/10/2019. Follow-up MRI brain to rule out CVA for left-sided weakness. Continue aspirin and statin. PT/OT/ST. Physical therapy recommends discharge home with no needs. Neurology recommends neurosurgery evaluation as an ou tpatient for LP shunt for pseudotumor cerebri syndrome. Continue frequent lumbar puncture every 4 months. Also patient may need outpatient ophthalmology evaluation for reconsideration of optic nerve sheath fenestration to prevent blindness from persistent pseudotumor cerebri condition. Consider discharge if MRI negative. 12/11/2019. MRI revealed no focal mass, hemorrhage, hydrocephalus or acute ischemia. Neurosurgery consultation for LP shunt for pseudotumor cerebri syndrome. Also patient may need outpatient ophthalmology evaluation for reconsideration of optic nerve sheath fenestration to prevent blindness from persistent pseudotumor cerebri condition. Patient still complains of headache and may need repeat LP per neurology recommendations. 12/12/2019. Neurosurgery reports patient not a candidate for csf diversion due to bordeline opening pressure on LP, predominance of visual symptoms rather than headache, and her high surgical risk status. Continue serial lumbar punctures. Patient will need ophthalmology consultation for fundoscopic examination, and consideration for optic sheath fenestration History Interval history: No new issues overnight. Hospitalist Physical - Constitutional Vitals: Temp Pulse Resp BP Pulse Ox 99.1 F 105 H 18 133/86 93 11/01/20 07:41 12/12/19 07:41 12/12/19 07:41 12/12/19 07:41 12/12/19 07:41 General appearance: Present: mild distress, well-nourished, obese (Morbidly obese) - EENT Eyes: Present: PERRL, EOM intact ENT: hearing intact, clear oral mucosa, dentition normal - Neck Neck: Present: supple, normal ROM - Respiratory Respiratory effort: normal Respiratory: bilateral: CTA - Cardiovascular Rhythm: regular Heart Sounds: Present: S1 & S2. Absent: gallop, rub - Extremities Extremities: no ischemia, No edema, Full ROM - Abdominal General gastrointestinal: soft, non-tender, non-distended, normal bowel sounds - Integumentary Integumentary: Present: clear, warm, dry - Neurologic Neurologic: CNII-XII intact, moves all extremities Results - Labs CBC & Chem 7: 12/08/19 10:38 12/09/19 04:24 Labs: Laboratory Last Values WBC 10.2 K/mm3 (4.5-11.0) 12/08/19 10:38 RBC 4.83 M/mm3 (3.65-5.03) 12/08/19 10:38 Hgb 13.1 gm/dl (10.1-14.3) 12/08/19 10:38 Hct 40.8 % (30.3-42.9) 12/08/19 10:38 MCV 84 fl (79-97) 12/08/19 10:38 MCH 27 pg (28-32) L 12/08/19 10:38 MCHC 32 % (30-34) 12/08/19 10:38 RDW 16.0 % (13.2-15.2) H 12/08/19 10:38 Plt Count 160 K/mm3 (140-440) 12/08/19 10:38 PT 14.0 Sec. (12.2-14.9) 12/08/19 10:38 INR 1.07 (0.87-1.13) 12/08/19 10:38 Sodium 142 mmol/L (137-145) 12/09/19 04:24 Potassium 3.8 mmol/L (3.6-5.0) 12/09/19 04:24 Chloride 106.0 mmol/L (98-107) 12/09/19 04:24 Carbon Dioxide 22 mmol/L (22-30) 12/09/19 04:24 Anion Gap 18 mmol/L 12/09/19 04:24 BUN 20 mg/dL (7-17) H 12/09/19 04:24 Creatinine 0.7 mg/dL (0.6-1.2) 12/09/19 04:24 Estimated GFR > 60 ml/min 12/09/19 04:24 BUN/Creatinine Ratio 29 % 12/09/19 04:24 Glucose 145 mg/dL (65-100) H 12/09/19 04:24 POC Glucose 130 mg/dL (70-105) H 12/12/19 08:00 Calcium 8.9 mg/dL (8.4-10.2) 12/09/19 04:24 Total Bilirubin < 0.20 mg/dL (0.1-1.2) 12/09/19 04:24 AST 11 units/L (5-40) 12/09/19 04:24 ALT 13 units/L (7-56) 12/09/19 04:24 Alkaline Phosphatase 120 units/L (35-129) 12/09/19 04:24 Total Protein 6.4 g/dL (6.3-8.2) 12/09/19 04:24 Albumin 3.8 g/dL (3.9-5) L 12/09/19 04:24 Albumin/Globulin Ratio 1.5 % 12/09/19 04:24 Triglycerides 127 mg/dL (2-149) 12/08/19 04:38 Cholesterol 100 mg/dL (50-199) 12/08/19 04:38 LDL Cholesterol Direct 43 mg/dL (50-130) L 12/08/19 04:38 HDL Cholesterol 38 mg/dL (40-59) L 12/08/19 04:38 Cholesterol/HDL Ratio 2.63 % 12/08/19 04:38 CSF Appearance Cloudy 12/08/19 15:00 CSF Color Red 12/08/19 15:00 CSF WBC 7 /mm3 (1-10) 12/08/19 15:00 CSF RBC 64635 /mm3 (0-0) 12/08/19 15:00 CSF Seg Neutrophils 63.0 % (0-6) 12/08/19 15:00 CSF Lymphocytes % 33.0 % (40-80) 12/08/19 15:00 CSF Reactive Lymphs 0 % 12/08/19 15:00 CSF Monocytes % 2.0 % (15-45) 12/08/19 15:00 CSF Eosinophils % 2.0 % 12/08/19 15:00 CSF Basophils 0 % 12/08/19 15:00 CSF Pathologist Review C 12/08/19 15:00 CSF Glucose 99 mg/dL 12/08/19 15:00 CSF Total Protein 178 mg/dL 12/08/19 15:00 Microbiology: Microbiology 12/08/19 15:00 Cerebral Spinal Fluid CSF Culture - Preliminary Flores/IV: Voiding Method Toilet IV Catheter Type [Right INT / Saline Lock Antecubital] Active Medications - Current Medications Current Medications: Generic Name Dose Route Start Last Admin Trade Name Freq PRN Reason Stop Dose Admin Acetaminophen 650 mg 12/07/19 20:17 12/09/19 20:20 Tylenol PO 650 mg Q4H PRN Administration Pain, Mild (1-3) Aspirin 325 mg 12/08/19 10:00 12/11/19 09:20 Aspirin PO 325 mg QDAY MARLYS Administration Atorvastatin Calcium 40 mg 12/07/19 22:00 12/11/19 21:09 Lipitor PO 40 mg QHS MARLYS Administration Bisacodyl 10 mg 12/07/19 20:17 Dulcolax ME QDAY PRN Constipation Insulin Human Lispro 0 unit 12/11/19 23:15 12/11/19 23:20 Humalog SUB-Q 3 unit ACHS MARLYS Administration Protocol Magnesium Hydroxide 30 ml 12/07/19 20:17 Milk Of Magnesia PO Q4H PRN Constipation Metoclopramide HCl 10 mg 12/07/19 20:17 Reglan PO Q6H PRN Nausea And Vomiting Ondansetron HCl 4 mg 12/07/19 20:17 Zofran IV Q8H PRN Nausea And Vomiting Oxycodone/Acetaminophen 1 tab 12/08/19 16:02 12/11/19 15:57 Percocet 5/325 PO 1 tab Q6H PRN Administration Pain, Moderate (4-6) Promethazine HCl 25 mg 12/07/19 20:17 Phenergan ME Q6H PRN Nausea And Vomiting Sodium Chloride 10 ml 12/07/19 20:17 10/31/20 09:20 Sodium Chloride Flush Syringe 10 Ml IV 10 ml PRN PRN Administration LINE FLUSH
[2019-12-12] MEDS: ASPIRIN 325 MG TAB PO SCH (09:05)
[2019-12-12] MEDS: oxyCODONE /ACETAMINOPHEN 5-325MG TAB PO PRN ×3 (09:05→20:51)
[2019-12-12] MEDS: MAGNESIUM HYDROXIDE (MOM) ORAL LIQD UDC PO PRN (20:45)
[2019-12-13] MEDS: TEMAZEPAM 15 MG CAP PO PRN ×2 (03:29→20:47)
[2019-12-13] MEDS: oxyCODONE /ACETAMINOPHEN 5-325MG TAB PO PRN ×2 (03:29→09:21)
--- NOTE | 2019-12-13 08:58 | Progress Note ---
Assessment and Plan Assessment and plan: --h/o Pseudotumor cerebri syndrome/serial lumbar punctures Current Visit: Yes Status: Acute Plan to address problem: s/p Fluoroscopic guided lumbar puncture with high opening pressure CSF analysis pending, patient continues to have some headache and dizziness Supportive care, out of bed to chair as tolerated Neurology following --Headache/dizziness; Current Visit: Yes Status: Acute Plan to address problem: IV fluids, pain medications, ambulate as tolerated --Hypertension; moderate control Current Visit: Yes Status: Acute Plan to address problem: Continue current antihypertensives, as needed meds, --Diabetes Current Visit: Yes Status: Acute Plan to address problem: Accu-Chek sliding scale coverage, ADA diet --Morbid obesity BMI 41.5 Current Visit: Yes Status: Acute Plan to address problem: Supplemental oxygen, nebulized therapy, noninvasive positive pressure ventilation as clinically indicated, outpatient pulmonary follow-up for sleep study. -- DVT prophylaxis Current Visit: Yes Status: Acute Plan to address problem: SCD to bilateral lower extremities while in bed, patient is ambulatory. 12/10/2019. Follow-up MRI brain to rule out CVA for left-sided weakness. Continue aspirin and statin. PT/OT/ST. Physical therapy recommends discharge home with no needs. Neurology recommends neurosurgery evaluation as an ou tpatient for LP shunt for pseudotumor cerebri syndrome. Continue frequent lumbar puncture every 4 months. Also patient may need outpatient ophthalmology evaluation for reconsideration of optic nerve sheath fenestration to prevent blindness from persistent pseudotumor cerebri condition. Consider discharge if MRI negative. 12/11/2019. MRI revealed no focal mass, hemorrhage, hydrocephalus or acute ischemia. Neurosurgery consultation for LP shunt for pseudotumor cerebri syndrome. Also patient may need outpatient ophthalmology evaluation for reconsideration of optic nerve sheath fenestration to prevent blindness from persistent pseudotumor cerebri condition. Patient still complains of headache and may need repeat LP per neurology recommendations. 12/12/2019. Neurosurgery reports patient not a candidate for csf diversion due to bordeline opening pressure on LP, predominance of visual symptoms rather than headache, and her high surgical risk status. Continue serial lumbar punctures. Patient will need ophthalmology consultation for fundoscopic examination, and consideration for optic sheath fenestration. 12/13/2019. Patient not a candidate for LP shunt per neurosurgery. Plan for LP today given patient's continued headache. Patient will need ophthalmology consultation for fundoscopic examination, and consideration for optic sheath fenestration. History Interval history: No new issues overnight. Hospitalist Physical - Constitutional Vitals: Temp Pulse Resp BP Pulse Ox 98.1 F 79 16 111/61 97 12/13/19 03:44 12/13/19 03:44 12/13/19 03:44 12/13/19 03:44 12/13/19 03:44 General appearance: Present: mild distress, well-nourished, obese (Morbidly obese) - EENT Eyes: Present: PERRL, EOM intact ENT: hearing intact, clear oral mucosa, dentition normal - Neck Neck: Present: supple, normal ROM - Respiratory Respiratory effort: normal Respiratory: bilateral: CTA - Cardiovascular Rhythm: regular Heart Sounds: Present: S1 & S2. Absent: gallop, rub - Extremities Extremities: no ischemia, No edema, Full ROM - Abdominal General gastrointestinal: soft, non-tender, non-distended, normal bowel sounds - Integumentary Integumentary: Present: clear, warm, dry - Neurologic Neurologic: CNII-XII intact, moves all extremities Results - Labs CBC & Chem 7: 12/08/19 10:38 12/09/19 04:24 Labs: Laboratory Last Values WBC 10.2 K/mm3 (4.5-11.0) 12/08/19 10:38 RBC 4.83 M/mm3 (3.65-5.03) 12/08/19 10:38 Hgb 13.1 gm/dl (10.1-14.3) 12/08/19 10:38 Hct 40.8 % (30.3-42.9) 12/08/19 10:38 MCV 84 fl (79-97) 12/08/19 10:38 MCH 27 pg (28-32) L 12/08/19 10:38 MCHC 32 % (30-34) 12/08/19 10:38 RDW 16.0 % (13.2-15.2) H 12/08/19 10:38 Plt Count 160 K/mm3 (140-440) 12/08/19 10:38 PT 14.0 Sec. (12.2-14.9) 12/08/19 10:38 INR 1.07 (0.87-1.13) 12/08/19 10:38 Sodium 142 mmol/L (137-145) 12/09/19 04:24 Potassium 3.8 mmol/L (3.6-5.0) 12/09/19 04:24 Chloride 106.0 mmol/L (98-107) 12/09/19 04:24 Carbon Dioxide 22 mmol/L (22-30) 12/09/19 04:24 Anion Gap 18 mmol/L 12/09/19 04:24 BUN 20 mg/dL (7-17) H 12/09/19 04:24 Creatinine 0.7 mg/dL (0.6-1.2) 12/09/19 04:24 Estimated GFR > 60 ml/min 12/09/19 04:24 BUN/Creatinine Ratio 29 % 12/09/19 04:24 Glucose 145 mg/dL (65-100) H 12/09/19 04:24 POC Glucose 235 mg/dL (70-105) H 12/13/19 07:56 Calcium 8.9 mg/dL (8.4-10.2) 12/09/19 04:24 Total Bilirubin < 0.20 mg/dL (0.1-1.2) 12/09/19 04:24 AST 11 units/L (5-40) 12/09/19 04:24 ALT 13 units/L (7-56) 12/09/19 04:24 Alkaline Phosphatase 120 units/L (35-129) 12/09/19 04:24 Total Protein 6.4 g/dL (6.3-8.2) 12/09/19 04:24 Albumin 3.8 g/dL (3.9-5) L 12/09/19 04:24 Albumin/Globulin Ratio 1.5 % 12/09/19 04:24 Triglycerides 127 mg/dL (2-149) 12/08/19 04:38 Cholesterol 100 mg/dL (50-199) 12/08/19 04:38 LDL Cholesterol Direct 43 mg/dL (50-130) L 12/08/19 04:38 HDL Cholesterol 38 mg/dL (40-59) L 12/08/19 04:38 Cholesterol/HDL Ratio 2.63 % 12/08/19 04:38 CSF Appearance Cloudy 12/08/19 15:00 CSF Color Red 12/08/19 15:00 CSF WBC 7 /mm3 (1-10) 12/08/19 15:00 CSF RBC 47395 /mm3 (0-0) 12/08/19 15:00 CSF Seg Neutrophils 63.0 % (0-6) 12/08/19 15:00 CSF Lymphocytes % 33.0 % (40-80) 12/08/19 15:00 CSF Reactive Lymphs 0 % 12/08/19 15:00 CSF Monocytes % 2.0 % (15-45) 12/08/19 15:00 CSF Eosinophils % 2.0 % 12/08/19 15:00 CSF Basophils 0 % 12/08/19 15:00 CSF Pathologist Review C 12/08/19 15:00 CSF Glucose 99 mg/dL 12/08/19 15:00 CSF Total Protein 178 mg/dL 12/08/19 15:00 Microbiology: Microbiology 12/08/19 15:00 Cerebral Spinal Fluid CSF Culture - Final Flores/IV: Voiding Method Toilet IV Catheter Type [Right INT / Saline Lock Antecubital] Active Medications - Current Medications Current Medications: Generic Name Dose Route Start Last Admin Trade Name Freq PRN Reason Stop Dose Admin Acetaminophen 650 mg 12/07/19 20:17 12/09/19 20:20 Tylenol PO 650 mg Q4H PRN Administration Pain, Mild (1-3) Aspirin 325 mg 12/08/19 10:00 12/12/19 09:05 Aspirin PO 325 mg QDAY MARLYS Administration Atorvastatin Calcium 40 mg 12/07/19 22:00 12/12/19 22:23 Lipitor PO Not Given QHS [facility] Bisacodyl 10 mg 12/07/19 20:17 12/12/19 20:46 Dulcolax ND 10 mg QDAY PRN Administration Constipation Insulin Human Lispro 0 unit 12/11/19 23:15 12/12/19 22:30 Humalog SUB-Q 3 unit ACHS MARLYS Administration Protocol Magnesium Hydroxide 30 ml 12/07/19 20:17 12/12/19 20:45 Milk Of Magnesia PO 30 ml Q4H PRN Administration Constipation Metoclopramide HCl 10 mg 12/07/19 20:17 Reglan PO Q6H PRN Nausea And Vomiting Ondansetron HCl 4 mg 12/07/19 20:17 Zofran IV Q8H PRN Nausea And Vomiting Oxycodone/Acetaminophen 1 tab 12/08/19 16:02 12/13/19 03:29 Percocet 5/325 PO 1 tab Q6H PRN Administration Pain, Moderate (4-6) Promethazine HCl 25 mg 12/07/19 20:17 Phenergan ND Q6H PRN Nausea And Vomiting Sodium Chloride 10 ml 12/07/19 20:17 12/11/19 09:20 Sodium Chloride Flush Syringe 10 Ml IV 10 ml PRN PRN Administration LINE FLUSH Temazepam 15 mg 12/13/19 03:24 12/13/19 03:29 Restoril PO 15 mg QHS PRN Administration Sleep
[2019-12-13] MEDS: INSULIN LISPRO 100 UNIT/ML VIAL 3 mL SUB-Q SCH ×4 (09:15→21:40)
[2019-12-13] MEDS: ASPIRIN 325 MG TAB PO SCH (09:16)
[2019-12-13] MEDS: MAGNESIUM HYDROXIDE (MOM) ORAL LIQD UDC PO PRN (20:47)
[2019-12-13] MEDS: ACETAMINOPHEN 325 MG TAB PO PRN (20:48)
--- NOTE | 2019-12-13 21:03 | Cat Scan Report ---
CT head/brain wo con INDICATION / CLINICAL INFORMATION: 64 years Female; severe headache. TECHNIQUE: Routine CT head without contrast. All CT scans at this location are performed using CT dos e reduction for ALARA by means of automated exposure control. COMPARISON: The study is compared to the previous CT of 12/08/2019. FINDINGS: BRAIN / INTRACRANIAL CONTENTS: The brain appears to demonstrate appropriate attenuation for age witho ut significant interval change from the earlier CT. The ventricular system remains appropriate in siz e and configuration. The motion degrades the image quality. However, there is no clear CT evidence of acute intracranial hemorrhage or significant mass effect. ORBITS: No significant abnormality of visualized orbits. SINUSES / MASTOIDS: No significant abnormality in the visualized paranasal sinuses or mastoid air enio ls. CRANIOCERVICAL JUNCTION: No significant abnormality. ADDITIONAL FINDINGS: There is a persistent 1.2 cm lucency involving left occipital calvarium which is nonspecific and unchanged. IMPRESSION: 1. There is no CT evidence of acute intracranial process. Signer Name: Basim Carson MD Signed: 12/13/2019 8:58 PM Workstation Name: [id number]
[2019-12-13] MEDS ORDERED: HYDROcodone/ACETAMINOPHEN 5-325 MG TAB PO PRN (23:42)
[2019-12-14] MEDS: tiZANidine TAB 4 MG TAB PO SCH ×2 (00:01→09:34)
[2019-12-14] MEDS: GABAPENTIN 300 MG CAP PO SCH ×2 (05:04→15:26)
--- NOTE | 2019-12-14 08:47 | Progress Note ---
Assessment and Plan Assessment and plan: --h/o Pseudotumor cerebri syndrome/serial lumbar punctures Current Visit: Yes Status: Acute Plan to address problem: s/p Fluoroscopic guided lumbar puncture with high opening pressure CSF analysis pending, patient continues to have some headache and dizziness Supportive care, out of bed to chair as tolerated Neurology following --Headache/dizziness; Current Visit: Yes Status: Acute Plan to address problem: IV fluids, pain medications, ambulate as tolerated --Hypertension; moderate control Current Visit: Yes Status: Acute Plan to address problem: Continue current antihypertensives, as needed meds, --Diabetes Current Visit: Yes Status: Acute Plan to address problem: Accu-Chek sliding scale coverage, ADA diet --Morbid obesity BMI 41.5 Current Visit: Yes Status: Acute Plan to address problem: Supplemental oxygen, nebulized therapy, noninvasive positive pressure ventilation as clinically indicated, outpatient pulmonary follow-up for sleep study. -- DVT prophylaxis Current Visit: Yes Status: Acute Plan to address problem: SCD to bilateral lower extremities while in bed, patient is ambulatory. 12/10/2019. Follow-up MRI brain to rule out CVA for left-sided weakness. Continue aspirin and statin. PT/OT/ST. Physical therapy recommends discharge home with no needs. Neurology recommends neurosurgery evaluation as an ou tpatient for LP shunt for pseudotumor cerebri syndrome. Continue frequent lumbar puncture every 4 months. Also patient may need outpatient ophthalmology evaluation for reconsideration of optic nerve sheath fenestration to prevent blindness from persistent pseudotumor cerebri condition. Consider discharge if MRI negative. 12/11/2019. MRI revealed no focal mass, hemorrhage, hydrocephalus or acute ischemia. Neurosurgery consultation for LP shunt for pseudotumor cerebri syndrome. Also patient may need outpatient ophthalmology evaluation for reconsideration of optic nerve sheath fenestration to prevent blindness from persistent pseudotumor cerebri condition. Patient still complains of headache and may need repeat LP per neurology recommendations. 12/12/2019. Neurosurgery reports patient not a candidate for csf diversion due to bordeline opening pressure on LP, predominance of visual symptoms rather than headache, and her high surgical risk status. Continue serial lumbar punctures. Patient will need ophthalmology consultation for fundoscopic examination, and consideration for optic sheath fenestration. 12/13/2019. Patient not a candidate for LP shunt per neurosurgery. Plan for LP today given patient's continued headache. Patient will need ophthalmology consultation for fundoscopic examination, and consideration for optic sheath fenestration. 12/14/2019; Patient not a candidate for LP shunt per neurosurgery. Plan for LP today given patient's continued headache. Patient will need ophthalmology consultation for fundoscopic examination, and consideration for optic sheath fenestration. History Interval history: No issues overnight Hospitalist Physical - Physical exam Narrative exam: Not in cardiopulmonary distress. The patient appeared well nourished and normally developed. Vital signs as documented. Head exam is unremarkable. No scleral icterus . Neck is without jugular venous distension, thyromegaly, or carotid bruits. Lungs are clear to auscultation. Cardiac exam reveals regular rate and Rhythm. Abdominal exam reveals normal bowel sounds, nontender, no organomegaly. Extremities are nonedematous and both femoral and pedal pulses are normal. HEAD PACKAGER: Alert and oriented 3. No focal weakness. - Constitutional Vitals: Temp Pulse Resp BP Pulse Ox 97.2 F L 73 18 105/54 93 12/14/19 08:07 12/14/19 08:07 12/14/19 05:30 12/14/19 08:07 12/14/19 08:07 General appearance: Present: mild distress, well-nourished, obese (Morbidly obese) Results - Labs CBC & Chem 7: 12/08/19 10:38 12/09/19 04:24 Labs: Laboratory Last Values WBC 10.2 K/mm3 (4.5-11.0) 12/08/19 10:38 RBC 4.83 M/mm3 (3.65-5.03) 12/08/19 10:38 Hgb 13.1 gm/dl (10.1-14.3) 12/08/19 10:38 Hct 40.8 % (30.3-42.9) 12/08/19 10:38 MCV 84 fl (79-97) 12/08/19 10:38 MCH 27 pg (28-32) L 12/08/19 10:38 MCHC 32 % (30-34) 12/08/19 10:38 RDW 16.0 % (13.2-15.2) H 12/08/19 10:38 Plt Count 160 K/mm3 (140-440) 12/08/19 10:38 PT 14.0 Sec. (12.2-14.9) 12/08/19 10:38 INR 1.07 (0.87-1.13) 12/08/19 10:38 Sodium 142 mmol/L (137-145) 12/09/19 04:24 Potassium 3.8 mmol/L (3.6-5.0) 12/09/19 04:24 Chloride 106.0 mmol/L (98-107) 12/09/19 04:24 Carbon Dioxide 22 mmol/L (22-30) 12/09/19 04:24 Anion Gap 18 mmol/L 12/09/19 04:24 BUN 20 mg/dL (7-17) H 12/09/19 04:24 Creatinine 0.7 mg/dL (0.6-1.2) 12/09/19 04:24 Estimated GFR > 60 ml/min 12/09/19 04:24 BUN/Creatinine Ratio 29 % 12/09/19 04:24 Glucose 145 mg/dL (65-100) H 12/09/19 04:24 POC Glucose 189 mg/dL (70-105) H 12/14/19 07:41 Calcium 8.9 mg/dL (8.4-10.2) 12/09/19 04:24 Total Bilirubin < 0.20 mg/dL (0.1-1.2) 12/09/19 04:24 AST 11 units/L (5-40) 12/09/19 04:24 ALT 13 units/L (7-56) 12/09/19 04:24 Alkaline Phosphatase 120 units/L (35-129) 12/09/19 04:24 Total Protein 6.4 g/dL (6.3-8.2) 12/09/19 04:24 Albumin 3.8 g/dL (3.9-5) L 12/09/19 04:24 Albumin/Globulin Ratio 1.5 % 12/09/19 04:24 Triglycerides 127 mg/dL (2-149) 12/08/19 04:38 Cholesterol 100 mg/dL (50-199) 12/08/19 04:38 LDL Cholesterol Direct 43 mg/dL (50-130) L 12/08/19 04:38 HDL Cholesterol 38 mg/dL (40-59) L 12/08/19 04:38 Cholesterol/HDL Ratio 2.63 % 12/08/19 04:38 CSF Appearance Cloudy 12/08/19 15:00 CSF Color Red 12/08/19 15:00 CSF WBC 7 /mm3 (1-10) 12/08/19 15:00 CSF RBC 82417 /mm3 (0-0) 12/08/19 15:00 CSF Seg Neutrophils 63.0 % (0-6) 12/08/19 15:00 CSF Lymphocytes % 33.0 % (40-80) 12/08/19 15:00 CSF Reactive Lymphs 0 % 12/08/19 15:00 CSF Monocytes % 2.0 % (15-45) 12/08/19 15:00 CSF Eosinophils % 2.0 % 12/08/19 15:00 CSF Basophils 0 % 12/08/19 15:00 CSF Pathologist Review C 12/08/19 15:00 CSF Glucose 99 mg/dL 12/08/19 15:00 CSF Total Protein 178 mg/dL 12/08/19 15:00 Flores/IV: Voiding Method Toilet IV Catheter Type [Right INT / Saline Lock Antecubital] Active Medications - Current Medications Current Medications: Generic Name Dose Route Start Last Admin Trade Name Freq PRN Reason Stop Dose Admin Acetaminophen 650 mg 12/07/19 20:17 12/13/19 20:48 Tylenol PO 650 mg Q4H PRN Administration Pain, Mild (1-3) Hydrocodone Bitart/Acetaminophen 1 each 12/13/19 23:42 12/14/19 00:03 [place] 5/325 PO 1 each Q6H PRN Administration Pain, Moderate (4-6) Aspirin 325 mg 12/08/19 10:00 12/13/19 09:16 Aspirin PO 325 mg QDAY MARLYS Administration Atorvastatin Calcium 40 mg 12/07/19 22:00 12/13/19 21:37 Lipitor PO Not Given QHS MARLYS Bisacodyl 10 mg 12/07/19 20:17 12/12/19 20:46 Dulcolax MS 10 mg QDAY PRN Administration Constipation Duloxetine HCl 30 mg 12/14/19 10:00 Cymbalta PO QDAY MARLYS Famotidine 40 mg 12/14/19 10:00 Pepcid PO QDAY MARLYS Gabapentin 300 mg 12/14/19 06:00 12/14/19 05:04 Gabapentin PO 300 mg Q8HR MARLYS Administration Insulin Human Lispro 0 unit 12/11/19 23:15 11/02/20 21:40 Humalog SUB-Q 2 unit ACHS MARLYS Administration Protocol Magnesium Hydroxide 30 ml 12/07/19 20:17 12/13/19 20:47 Milk Of Magnesia PO 30 ml Q4H PRN Administration Constipation Metoclopramide HCl 10 mg 12/07/19 20:17 Reglan PO Q6H PRN Nausea And Vomiting Ondansetron HCl 4 mg 12/07/19 20:17 Zofran IV Q8H PRN Nausea And Vomiting Oxycodone/Acetaminophen 1 tab 12/08/19 16:02 12/13/19 09:21 Percocet 5/325 PO 1 tab Q6H PRN Administration Pain, Moderate (4-6) Promethazine HCl 25 mg 12/07/19 20:17 Phenergan MS Q6H PRN Nausea And Vomiting Sodium Chloride 10 ml 12/07/19 20:17 12/13/19 20:51 Sodium Chloride Flush Syringe 10 Ml IV 10 ml PRN PRN Administration LINE FLUSH Temazepam 15 mg 12/13/19 03:24 12/13/19 20:47 Restoril PO 15 mg QHS PRN Administration Sleep Tizanidine HCl 4 mg 12/14/19 00:00 12/14/19 00:01 Zanaflex PO 4 mg Q8H MARLYS Administration
[2019-12-14] MEDS: INSULIN LISPRO 100 UNIT/ML VIAL 3 mL SUB-Q SCH ×2 (09:34→12:16)
[2019-12-14] MEDS ORDERED: FAMOTIDINE 20 MG TAB PO SCH (10:00)
[2019-12-14] MEDS ORDERED: DULoxetine 30 MG CAP PO SCH (10:00)
[2019-12-14] MEDS ORDERED: MORPHINE 2 MG/1 ML INJ IV PRN (10:00)
--- NOTE | 2019-12-14 11:18 | XRay Report ---
CHEST 1 VIEW INDICATION / CLINICAL INFORMATION: congestion. COMPARISON: 11/18/2018 FINDINGS: SUPPORT DEVICES: None. HEART / MEDIASTINUM: Mild cardiomegaly. LUNGS / PLEURA: Stable eventration of the right hemidiaphragm. No significant pleural or parenchymal abnormality. No pneumothorax. ADDITIONAL FINDINGS: No significant additional findings. IMPRESSION: 1. No acute findings. Signer Name: Scot Draper MD Signed: 12/14/2019 11:14 AM Workstation Name: [id number]
[2019-12-14] MEDS: ASPIRIN 325 MG TAB PO SCH (11:21)
--- NOTE | 2019-12-14 13:12 | Discharge Summary ---
Providers - Providers Date of Admission: 12/10/19 15:19 Date of discharge: 12/14/19 Attending physician: CASSIE CARDOZO MD 12/07/19 20:18 Occupational Therapy Evaluate and Treat [CONS] Routine Comment: Reason For Exam: Neuro deficits Physical Therapy Evaluation and Treat [CONS] Routine Comment: Reason For Exam: Neuro deficits 12/07/19 20:19 Speech Therapy Evaluation and Treat [CONS] Routine Reason For Exam: swallow eval 12/08/19 11:09 Consult to Physician [CONS] Routine Comment: Consulting Provider: MIKE PAYAN Physician Instructions: Reason For Exam: Pseudotumor cerebri 12/11/19 11:15 Consult to Physician [CONS] Routine Comment: Consulting Provider: MASOUD SHAFER II Physician Instructions: Reason For Exam: pseudotumor cerebri Primary care physician: [employer] SPECIALIST Hospitalization Reason for admission: Headache , pseudotumor cerebri Condition: Stable Procedures: LP Hospital course: History of present illness: 64 YO Female with HTN, DM, COPD, ELIAS, CHF, CVA, Pseudotumor Cerebrii S/P Serial Lumbar Puncture presents to ED for evaluation. Patient states that she was in her usual state of health at bedtime around 2200 hrs. Patient states that she awoke from sleep and felt as though she could not talk and if the right side of her face was weak. Patient also acknowledges a headache. EMS was notified and upon arrival the patient was found to be in distress and subsequently transported to [facility] for further care and evaluation. Patient seen and evaluated in the emergency department. Lab and imaging studies reviewed. Patient found to have symptoms consistent with pseudotumor cerebri syndrome. Patient placed in observation status and admitted to medical floor. Fluoroscopic guided lumbar puncture ordered at time of admission and is pending. Teleneurology consulted in ED. Patient denies fever, chills, chest pain, palpitations, syncope, trauma, falls, loss of bowel or bladder continence, saddle anesthesia, productive cough, recent ill contacts, or known exposure to COVID-19. No prior admission for review. No medication at the time of admission for reconciliation. --h/o Pseudotumor cerebri syndrome/serial lumbar punctures Current Visit: Yes Status: Acute Plan to address problem: s/p Fluoroscopic guided lumbar puncture with high opening pressure CSF analysis pending, patient continues to have some headache and dizziness Supportive care, out of bed to chair as tolerated Neurology following --Headache/dizziness; Current Visit: Yes Status: Acute Plan to address problem: IV fluids, pain medications, ambulate as tolerated --Hypertension; moderate control Current Visit: Yes Status: Acute Plan to address problem: Continue current antihypertensives, as needed meds, --Diabetes Current Visit: Yes Status: Acute Plan to address problem: Accu-Chek sliding scale coverage, ADA diet --Morbid obesity BMI 41.5 Current Visit: Yes Status: Acute Plan to address problem: Supplemental oxygen, nebulized therapy, noninvasive positive pressure ventilation as clinically indicated, outpatient pulmonary follow-up for sleep study. -- DVT prophylaxis Current Visit: Yes Status: Acute Plan to address problem: SCD to bilateral lower extremities while in bed, patient is ambulatory. 12/10/2019. Follow-up MRI brain to rule out CVA for left-sided weakness. Rebecca nue aspirin and statin. PT/OT/ST. Physical therapy recommends discharge home with no needs. Neurology recommends neurosurgery evaluation as an outpatient for LP shunt for pseudotumor cerebri syndrome. Continue frequent lumbar puncture every 4 months. Also patient may need outpatient ophthalmology evaluation for reconsideration of optic nerve sheath fenestration to prevent blindness from persistent pseudotumor cerebri condition. Consider discharge if MRI negative. 12/11/2019. MRI revealed no focal mass, hemorrhage, hydrocephalus or acute ischemia. Neurosurgery consultation for LP shunt for pseudotumor cerebri syndrome. Also patient may need outpatient ophthalmology evaluation for reconsideration of optic nerve sheath fenestration to prevent blindness from persistent pseudotumor cerebri condition. Patient still complains of headache and may need repeat LP per neurology recommendations. 12/12/2019. Neurosurgery reports patient not a candidate for csf diversion due to bordeline opening pressure on LP, predominance of visual symptoms rather than headache, and her high surgical risk status. Continue serial lumbar punctures. Patient will need ophthalmology consultation for fundoscopic examination, and consideration for optic sheath fenestration. 12/13/2019. Patient not a candidate for LP shunt per neurosurgery. Plan for LP today given patient's continued headache. Patient will need ophthalmology consultation for fundoscopic examination, and consideration for optic sheath fenestration. Discussed with neurosurgeon Dr. Masoud Shafer and he states opening pressure is borderline and does not need to repeat lumbar puncture and can follow her scheduled outpatient lumbar puncture. He recommended outpatient ophthalmology evaluation but he said is not emergency and patient can follow-up as an outpatient. Patient has no headache. Patient discharged home with with the advice to have follow up with Ophthalmology. Disposition: DC-30 STILL A PATIENT Time spent for discharge: 35 minutes - Discharge Diagnoses (1) Diabetes Status: Chronic Qualifiers: Diabetes mellitus type: type 2 Diabetes mellitus complication status: without complication (2) Hypertension Status: Acute Qualifiers: Hypertension type: essential hypertension Qualified Code(s): I10 - Essential (primary) hypertension (3) Obesity hypoventilation syndrome Status: Chronic (4) Pseudotumor cerebri syndrome Status: Chronic (5) Morbid obesity Status: Chronic Core Measure Documentation - Palliative Care Palliative Care/ Comfort Measures: Not Applicable - Core Measures Any of the following diagnoses?: none Exam - Physical Exam Narrative exam: Not in cardiopulmonary distress. The patient is morbidly obese. Vital signs as documented. Head exam is unremarkable. No scleral icterus . Neck is without jugular venous distension, thyromegaly, or carotid bruits. Lungs are clear to auscultation. Cardiac exam reveals regular rate and Rhythm. Abdominal exam reveals normal bowel sounds, nontender, no organomegaly. Extremities are nonedematous and both femoral and pedal pulses are normal. PIN SORTER AND BAGGER: Alert and oriented 3. No focal weakness. - Constitutional Vitals: Temp Pulse Resp BP Pulse Ox 97.4 F L 73 14 81/53 95 12/14/19 11:18 12/14/19 11:18 12/14/19 11:18 12/14/19 11:18 12/14/19 11:18 Plan Activity: advance as tolerated Weight Bearing Status: Weight Bear as Tolerated Diet: low salt, diabetic Additional Instructions: Follow-up with ophthalmology as an outpatient Follow up with: PRIMARY MD MONICA [Primary Care Provider] - 7 Days
[2019-12-14 13:53] VITALS: BP 81/53
[2019-12-14] MEDS ORDERED: FLU VACC QUAD 2020-2021 (6 months +)/PF 60 0.5 ML SYRINGE IM ONE (14:30)
[2019-12-14] MEDS: ACETAMINOPHEN 325 MG TAB PO PRN (15:48)
[2019-12-15 13:27] LABS: BUN/Creatinine Ratio 38; Blood Urea Nitrogen 19 mg/dL (7-17); Calcium 8.7 mg/dL (8.4-10.2)
[2019-12-15 13:29] LABS: BUN/Creatinine Ratio 30; Blood Urea Nitrogen 18 mg/dL (7-17)
== END 2019-12-14 17:24 | disposition home or self-care (01) | DRG 103 ==
LOC: ED 10:17 → 4A 20:18 → OBSVTOIN 12-10 15:19
PROVIDERS: ADMIT Internal Medicine; ATTEND Internal Medicine
PROC: 009U3ZX Drainage of Spinal Canal, Percutaneous Approach, Diagnostic (ICD-10-PCS; principal; 2019-12-08)
PROC: B01B1ZZ Fluoroscopy of Spinal Cord using Low Osmolar Contrast (ICD-10-PCS; 2019-12-08)
PROC: 5A09357 Assistance with Respiratory Ventilation, Less than 24 Consecutive Hours, Continuous Positive Airway Pressure (ICD-10-PCS; 2019-12-11)
PROC: 5A09357 Assistance with Respiratory Ventilation, Less than 24 Consecutive Hours, Continuous Positive Airway Pressure (ICD-10-PCS; 2019-12-13)
DX: G93.2 Benign intracranial hypertension (principal); E66.2 Morbid (severe) obesity with alveolar hypoventilation; Z68.41 Body mass index [BMI] 40.0-44.9, adult; I50.42 Chronic combined systolic (congestive) and diastolic (congestive) heart failure; I69.354 Hemiplegia and hemiparesis following cerebral infarction affecting left non-dominant side; E11.9 Type 2 diabetes mellitus without complications; I11.0 Hypertensive heart disease with heart failure; H02.401 Unspecified ptosis of right eyelid; J44.9 Chronic obstructive pulmonary disease, unspecified; G80.8 Other cerebral palsy; Z79.899 Other long term (current) drug therapy; Z79.82 Long term (current) use of aspirin; Z88.8 Allergy status to other drugs, medicaments and biological substances
CPT/HCPCS: 36415; 62270; 70450; 70496; 70498; 70553; 71045; 77003; 80048; 80053; 80061; 82947; 82962; 84160; 85027; 85610; 87116; 89051; 90686; 93005; 94660; 96365; 96375; G0378; A9270-GY; A9577; J1170; J2270; J2405; J3010; Q9967